=== PATIENT | male | born 1945 | race Caucasian/White ===

== ENCOUNTER 2017-04-16 06:42 | Inpatient (IN) | payer OTHER, MEDICARE ==
[~2017-04-16 06:42] MED LIST: Acetaminophen 1,000 MG in Premix Bag 1 BAG IV SCH; Famotidine 20 MG/2 ML SDV IVPUSH SCH; Ketorolac 15 MG/ML SDV IVPUSH SCH; Scopolamine 1.5 MG Transdermal Patch TRDERM SCH
[2017-04-16] MEDS ORDERED: Propofol 200 MG/20 ML SDV ONE (07:04)
[2017-04-16] MEDS ORDERED: Ondansetron 4 MG/2 ML SDV ONE (07:04)
[2017-04-16] MEDS ORDERED: Midazolam 1 MG/ML 2 ML SDV ONE (07:04)
[2017-04-16] MEDS ORDERED: fentaNYL 250 MCG/5 ML SDV ONE (07:04)
[2017-04-16] MEDS ORDERED: Lidocaine 2% 5 ML SDV ONE (07:04)
[2017-04-16] MEDS: Lactated Ringers 1,000 ML IV SCH ×2 (07:56→13:05)
[2017-04-16] MEDS: oxyCODONE ER 10 MG TAB.ER PO SCH ×2 (07:57→20:39)
[2017-04-16] MEDS ORDERED: Ropivacaine 49.25 ML, Ketorolac 30 MG, EPINEPHrine 0.5 MG, cloNIDine 80 MCG in Sodium C... INJECT SCH (08:00)
[2017-04-16] MEDS ORDERED: ceFAZolin 2 GM in Premix Bag 1 BAG IV SCH (08:00)
[2017-04-16] MEDS ORDERED: Tranexamic Acid 4,000 MG in Sodium Chloride 0.9% 100 ML IV SCH (08:00)
--- NOTE | 2017-04-16 08:03 | PCM.PREANE ---
Preanesthetic Assessment - Procedure Proposed Procedure: Right TKA - Anesthesia/Transfusion/Family Hx Anesthesia History: Prior Anesthesia Without Reaction Family History of Anesthesia Reaction: No Transfusion History: No Prior Transfusion(s) Intubation History: Unknown Additional History: hx of always being "hot/sweating". - Review of Systems General: Other (see above) Pulmonary: No Symptoms (former smoker) Cardiovascular: Other (Hypertension) Gastrointestinal: Other (GERD) Neurological: Gait Disturbance (due to knee pain), Other (chronic back pain) Other: Reports: Thyroid Problems (hypothyroid - treated), Neck Pain (chronic) - Physical Assessment NPO Status Date: 04/16/17 NPO Status Time: 05:00 (took pills) Height: 5 ft 4 in Weight: 248 lb ASA Class: 3 Mental Status: Alert & Oriented x3 Airway Class: Mallampati = 2 Dentition: Reports: Normal Dentition, Caries Thyro-Mental Finger Breadths: 3 Mouth Opening Finger Breadths: 3 ROM/Head Extension: Limited/Partial Lungs: Clear to Auscultation, Normal Respiratory Effort Cardiovascular: Regular Rate, Regular Rhythm, No Murmurs - Allergies Allergies/Adverse Reactions: Allergies Allergy/AdvReac Type Severity Reaction Status Date / Time No Known Allergies Allergy Verified 04/13/17 10:11 - Blood Blood Available: Yes Product(s) Available: PRBC (T and S) - Anesthesia Plan Pre-Op Medication Ordered: None - Acknowledgements Anesthesia Type Planned: General Anesthesia (OET vs LMA), Spinal Pt an Appropriate Candidate for the Planned Anesthesia: Yes Alternatives and Risks of Anesthesia Discussed w Pt/Guardian: Yes Pt/Guardian Understands and Agrees with Anesthesia Plan: Yes PreAnesthesia Questionnaire HEENT History: Reports: Cataract, Sinusitis Other HEENT History: wears glasses Cardiovascular History: Reports: CAD, High Cholesterol, Hypertension, SOB on Exertion Respiratory History: Reports: None Gastrointestinal History: Reports: GERD Genitourinary History: Reports: Renal Calculus Other Genitourinary History: takes Allopurinol for kidney stones Musculoskeletal History: Reports: Arthritis, Back Pain, Chronic, Neck Pain, Chronic Neurological History: Reports: None Psychiatric History: Reports: None Endocrine/Metabolic History: Reports: Hypothyroidism, Obesity/BMI 30+ Hematologic History: Reports: None Immunologic History: Reports: None Oncologic (Cancer) History: Reports: Other (See Below) Other Oncologic History: questionable lump removed from right arm/shoulder area many years ago Dermatologic History: Reports: Eczema Other Dermatologic History: on elbow - Past Surgical History Head Surgeries/Procedures: Reports: None HEENT Surgical History: Reports: Oral Surgery, Tonsillectomy Other Cardiovascular Surgeries/Procedures: cardiac angiogram Respiratory Surgical History: Reports: None GI Surgical History: Reports: None Male Surgical History: Reports: Lithotripsy (ESWL), Ureteral Stent Endocrine Surgical History: Reports: None Neurological Surgical History: Reports: None Musculoskeletal Surgical History: Reports: Knee Replacement, Other (See Below) Other Musculoskeletal Surgeries/Procedures:: right biceps tendon repair Oncologic Surgical History: Reports: None - History Comment History Comment: etoh "rare" - SUBSTANCE USE Smoking Status *Q: Former Smoker Tobacco Use Within Last Twelve Months: No Recreational Drug Use History: No - HOME MEDS Home Medications: Home Meds Allopurinol [Zyloprim] 300 mg PO DAILY 08/16/16 [History] Furosemide 20 mg PO QAM 08/16/16 [History] Levothyroxine Sodium [Synthroid] 112 mcg PO DAILY 08/16/16 [History] Plains-3/DHA/Epa/Fish Oil [Plains-3 Fish Oil 1,000 MG Sfgl] 1,000 mg PO DAILY 03/25 [History] Simvastatin [Zocor] 80 mg PO BEDTIME 08/16/16 [History] Vit D3 & K/Berberine HCl/Hops [Ostera] 2,000 unit PO DAILY 08/16/16 [History] Vitamin B Complex [B Complex] 100 mg PO DAILY 08/16/16 [History] Celecoxib [CeleBREX] 200 mg PO DAILY #45 cap 08/30/16 [Rx] Aspirin [Adult Low Dose Aspirin EC] 81 mg PO DAILY 04/13/17 [History] Losartan Potassium 50 mg PO DAILY 04/13/17 [History] - CURRENT (IN HOUSE) MEDS Current Meds: Current Medications Famotidine (Pepcid) 40 mg IVPUSH ONARRIVE [facility] Acetaminophen 1,000 mg/ Premix 100 mls @ 400 mls/hr IV ONARRIVE [facility] Ropivacaine 49.25 ml/Ketorolac Tromethamine 30 mg/Epinephrine HCl 0.5 mg/ Clonidine HCl 80 mcg/ Sodium Chloride 100 mls @ 50 mls/min INJECT ASDIRECTED [facility] Lactated Ringer's (Ringers, Lactated) 1,000 mls @ 100 mls/hr IV ASDIRECTED [facility] Last Admin: 04/16/17 07:56 Dose: 100 mls/hr Tranexamic Acid 4,000 mg/ (Sodium Chloride) 140 mls @ 600 mls/hr IV ASDIRECTED [facility] Cefazolin Sodium/Dextrose 2 gm (/ Premix) 50 mls @ 100 mls/hr IV ONCALL [facility] Ketorolac Tromethamine (Toradol) 15 mg IVPUSH ONARRIVE [facility] Oxycodone HCl (Oxycontin) 10 mg PO ONARRIVE [facility] Last Admin: 04/16/17 07:57 Dose: 10 mg Scopolamine (Transderm-Scop) 1.5 mg TRDERM ONARRIVE [facility] Last Admin: 04/16/17 07:56 Dose: 1.5 mg Discontinued Medications Fentanyl (Sublimaze) Confirm Administered Dose 250 mcg .ROUTE .STK-MED ONE Stop: 04/16/17 07:05 Lidocaine (Xylocaine-Mpf 2%) Confirm Administered Dose 5 ml .ROUTE .STK-MED ONE Stop: 04/16/17 07:05 Midazolam HCl (Versed 1 Mg/Ml) Confirm Administered Dose 2 mg .ROUTE .STK-MED ONE Stop: 04/16/17 07:05 Ondansetron HCl (Zofran) Confirm Administered Dose 4 mg .ROUTE .STK-MED ONE Stop: 04/16/17 07:05 Propofol (Diprivan 20 Ml) Confirm Administered Dose 200 mg .ROUTE .STK-MED ONE Stop: 04/16/17 07:05 Tranexamic Acid (Cyklokapron) Confirm Administered Dose 4,000 mg .ROUTE .STK- MED ONE Stop: 04/16/17 07:43
[2017-04-16] MEDS ORDERED: Succinylcholine/Normal Saline 200 MG/10 ML Syringe ONE (09:02)
[2017-04-16] MEDS ORDERED: Rocuronium 10 MG/ML 10 ML Syringe ONE (09:02)
[2017-04-16] MEDS ORDERED: ceFAZolin 1 GM Vial ONE ×2 (09:05→09:25)
[2017-04-16] MEDS ORDERED: Sodium Chloride 0.9% 20 ML ONE ×2 (09:05)
[2017-04-16] MEDS ORDERED: Phenylephrine/Normal Saline 100 MCG/ML 10 ML Syringe ONE (09:07)
[2017-04-16] MEDS ORDERED: Water For Injection, Sterile 20 ML ONE (09:09)
[2017-04-16] MEDS ORDERED: ePHEDrine 50 MG/ML SDV ONE (09:09)
[2017-04-16] MEDS ORDERED: fentaNYL 100 MCG/2 ML SDV IVPUSH PRN (09:30)
[2017-04-16] MEDS ORDERED: Bisacodyl 10 MG Supp RECTAL PRN (10:20)
[2017-04-16] MEDS ORDERED: Aluminum Hydroxide/Magnesium Hydroxide/Simethicone Susp 30 ML Cup PO PRN (10:20)
[2017-04-16] MEDS ORDERED: diphenhydrAMINE 25 MG Cap PO PRN (10:20)
[2017-04-16] MEDS ORDERED: Morphine 10 MG/ML Syringe IVPUSH PRN (10:20)
--- NOTE | 2017-04-16 10:44 | PCM.OPNOTE ---
- General Post-Op/Procedure Note Date of Surgery/Procedure: 04/16/17 Operative Procedure(s): R TKA Post-Op Diagnosis: DJD R knee Anesthesia Technique: General ET Tube, Spinal Primary Surgeon: Valerie Garcia Chair Caner: Noemi Bond Chair Caner: Meggan Fuentes EBShayna in mLs: 50 Condition: Good Free Text/Narrative:: tt=47 min #[id number] Intake & Output 04/15/17 04/16/17 04/16/17 22:59 06:59 14:59 Output Total 100 Balance -100
--- NOTE | 2017-04-16 11:25 | PCM.POSTAN ---
POST ANESTHESIA ASSESSMENT - MENTAL STATUS Mental Status: Alert, Oriented - RESPIRATORY Respiratory Status: Respiratory Rate WNL, Airway Patent, O2 Saturation Stable - CARDIOVASCULAR CV Status: Pulse Rate WNL, Blood Pressure Stable - GASTROINTESTINAL GI Status: No Symptoms - PAIN Pain Score: 0 (spinal still effective) - POST OP HYDRATION Hydration Status: Adequate & Stable
[2017-04-16] MEDS: oxyCODONE 5 MG Tab PO PRN (12:02)
[2017-04-16] MEDS: Acetaminophen 1,000 MG in Premix Bag 1 BAG IV SCH ×2 (13:36→20:35)
--- NOTE | 2017-04-16 14:19 | CR ---
EXAMINATION: Right knee HISTORY: Arthroplasty COMPARISON: 09/07/2016 TECHNIQUE: 2 views FINDINGS/IMPRESSION: Right total knee hardware is demonstrated in good position and alignment. Opera tive soft tissue changes are noted.
--- NOTE | 2017-04-16 14:29 | PCM.CONS ---
H&P History of Present Illness - General Date of Service: 04/16/17 Admit Problem/Dx: Admission Diagnosis/Problem Admission Diagnosis/Problem Arthroplasty of right knee Source of Information: Patient History Limitations: Reports: No Limitations - History of Present Illness Initial Comments - Free Text/Narative: 71 [id number] that underwent successful total right knee arthroplasty today by Dr. Garcia, orthopedist. We have been consulted by Dr. Garcia secondary to the patients multitude of medical problems including CAD, Hypercholesterolemia, hypertension, hypothyroidism, chronic neck/back pain treated with MsContin and Oxycodone, gout and GERD. Patient has been on his current medications for a long time with no changes in dosing. He currently denies any chest pain, palpitations, shortness of breath, wheezing, cough, abdominal pain, N/V/C/D, headache, dizziness, N/T/W in the upper and lower extremities bilaterally. He has already been up walking on the right knee and states that he did well with this. - Related Data Allergies/Adverse Reactions: Allergies Allergy/AdvReac Type Severity Reaction Status Date / Time No Known Allergies Allergy Verified 04/13/17 10:11 Home Medications: Home Meds Allopurinol [Zyloprim] 300 mg PO DAILY 08/16/16 [History] Furosemide 20 mg PO QAM 08/16/16 [History] Levothyroxine Sodium [Synthroid] 115 mcg PO DAILY 08/16/16 [History] Jones-3/DHA/Epa/Fish Oil [Jones-3 Fish Oil 1,000 MG Sfgl] 1,000 mg PO DAILY 03/25 [History] Simvastatin [Zocor] 80 mg PO BEDTIME 08/16/16 [History] Vit D3 & K/Berberine HCl/Hops [Ostera] 2,000 unit PO DAILY 08/16/16 [History] Vitamin B Complex [B Complex] 100 mg PO DAILY 08/16/16 [History] Losartan Potassium 50 mg PO DAILY 04/13/17 [History] Acetaminophen [Tylenol Extra Strength] 1,000 mg PO Q6H #100 tablet 04/16/17 [Rx] Aspirin 325 mg PO BID #90 tablet 04/16/17 [Rx] Celecoxib [CeleBREX] 200 mg PO DAILY #45 cap 04/16/17 [Rx] Cetirizine HCl 1 tab PO DAILY PRN 04/16/17 [History] Docusate Sodium [Colace] 100 mg PO BID #60 cap 04/16/17 [Rx] Furosemide 40 mg PO DAILY 04/16/17 [History] oxyCODONE 5 - 10 mg PO Q4H PRN #80 tablet 04/16/17 [Rx] oxyCODONE ER [OxyCONTIN] 10 mg PO Q12HR #30 tab.er 04/16/17 [Rx] Past Medical History HEENT History: Reports: Cataract, Sinusitis Other HEENT History: wears glasses Cardiovascular History: Reports: CAD, High Cholesterol, Hypertension, SOB on Exertion Respiratory History: Reports: None Gastrointestinal History: Reports: GERD Genitourinary History: Reports: Renal Calculus Other Genitourinary History: takes Allopurinol for kidney stones Musculoskeletal History: Reports: Arthritis, Back Pain, Chronic, Neck Pain, Chronic Neurological History: Reports: None Psychiatric History: Reports: None Endocrine/Metabolic History: Reports: Hypothyroidism, Obesity/BMI 30+ Hematologic History: Reports: None Immunologic History: Reports: None Oncologic (Cancer) History: Reports: Other (See Below) Other Oncologic History: questionable lump removed from right arm/shoulder area many years ago Dermatologic History: Reports: Eczema Other Dermatologic History: on elbow - Past Surgical History Head Surgeries/Procedures: Reports: None HEENT Surgical History: Reports: Oral Surgery, Tonsillectomy Other Cardiovascular Surgeries/Procedures: cardiac angiogram Respiratory Surgical History: Reports: None GI Surgical History: Reports: None Male Surgical History: Reports: Lithotripsy (ESWL), Ureteral Stent Endocrine Surgical History: Reports: None Neurological Surgical History: Reports: None Musculoskeletal Surgical History: Reports: Knee Replacement, Other (See Below) Other Musculoskeletal Surgeries/Procedures:: right biceps tendon repair Oncologic Surgical History: Reports: None - History Comment History Comment: etoh "rare" Social & Family History - Tobacco Use Smoking Status *Q: Former Smoker - Recreational Drug Use Recreational Drug Use: No Drug Use in Last 12 Months: No H&P Review of Systems - Review of Systems: Review Of Systems: See Below General: Reports: No Symptoms HEENT: Reports: No Symptoms Pulmonary: Reports: No Symptoms Cardiovascular: Reports: No Symptoms Gastrointestinal: Reports: No Symptoms Genitourinary: Reports: No Symptoms Musculoskeletal: Reports: Neck Pain (chronic), Back Pain (chronic), Other ( right knee pain s/p total right knee arthroplasty) Skin: Reports: No Symptoms Psychiatric: Reports: No Symptoms Neurological: Reports: No Symptoms Hematologic/Lymphatic: Reports: No Symptoms Immunologic: Reports: No Symptoms Exam - Exam Exam: See Below - Vital Signs Vital Signs: Last Vital Signs Temp 97.7 F 04/16/17 13:36 Pulse 83 04/16/17 13:36 Resp 19 04/16/17 13:36 BP 103/59 L 04/16/17 13:36 Pulse Ox 93 L 04/16/17 13:36 Weight: 248 lb - Exam Quality Assessment: DVT Prophylaxis (SCD's, aspirin BID) General: Alert, Oriented, Cooperative HEENT: Conjunctiva Clear, Hearing Intact, Mucosa Moist & [place], Posterior Pharynx Clear Neck: Supple, Trachea Midline, 2 Lungs: Clear to Auscultation, Normal Respiratory Effort Cardiovascular: Regular Rate, Regular Rhythm GI/Abdominal Exam: Normal Bowel Sounds, Soft, Non-Tender, No Organomegaly, No Distention, No Abnormal Bruit, No Mass Extremities: Normal Inspection, Normal Range of Motion, Non-Tender, No Pedal Edema, Normal Capillary Refill, Other (right knee is being iced ) Peripheral Pulses: 2+: Radial (L), Radial (R), Posterior Tibial (L), Posterior Tibial (R) Skin: Warm, Dry, Intact Neuro Extensive - Mental Status: Alert, Oriented x3, Normal Mood/Affect, Normal Cognition Psychiatric: Alert, Normal Affect, Normal Mood - Patient Data Lab Results Last 24 hrs: Laboratory Results - last 24 hr 04/16/17 Range/Units 07:03 Blood Type A NEGATIVE Antibody Screen NEGATIVE Consult PN Assessment/Plan POD#: 0 Procedures: Procedures CHEST X-RAY 2VW FRONTAL&LATL (03/28/17) COMPLETE CBC W/AUTO DIFF WBC (03/28/17) COMPREHEN METABOLIC PANEL (03/28/17) ELECTROCARDIOGRAM TRACING (08/02/16) HEPATITIS C AB TEST (08/02/16) INJ PARAVERT F JNT L/S 1 LEV (05/18/16) MRI JNT OF LWR EXTRE W/O DYE (03/08/17) MRI LUMBAR SPINE W/O DYE (03/31/16) NEUROMUSCULAR REEDUCATION (10/10/16) NJX INTERLAMINAR LMBR/SAC (03/21/17) PROTHROMBIN TIME (03/28/17) PT EVALUATION (09/07/16) ROUTINE VENIPUNCTURE (03/28/17) THERAPEUTIC EXERCISES (10/17/16) THROMBOPLASTIN TIME PARTIAL (03/28/17) URINALYSIS AUTO W/SCOPE (03/28/17) URINE CULTURE/COLONY COUNT (03/28/17) US EXAM ABDO BACK WALL CABEZAS (07/26/15) VASOPNEUMATIC DEVICE THERAPY (10/10/16) X-RAY EXAM KNEE 4 OR MORE (05/02/16) X-RAY EXAM OF KNEE 1 OR 2 (07/11/16) X-RAY EXAM OF KNEE 3 (09/07/16) X-RAY EXAM OF SHOULDER (09/24/14) (1) Coronary artery disease SNOMED Code(s): 93751472 Code(s): I25.10 - ATHSCL HEART DISEASE OF [place] CORONARY ARTERY W/O ANG PCTRS Current Visit: Yes (2) Hypercholesteremia SNOMED Code(s): 73157853 Code(s): E78.00 - PURE HYPERCHOLESTEROLEMIA, UNSPECIFIED Current Visit: Yes (3) Hypertension SNOMED Code(s): 48545921 Code(s): I10 - ESSENTIAL (PRIMARY) HYPERTENSION Current Visit: Yes (4) GERD (gastroesophageal reflux disease) SNOMED Code(s): 591461932 Code(s): K21.9 - GASTRO-ESOPHAGEAL REFLUX DISEASE WITHOUT ESOPHAGITIS Current Visit: Yes (5) Hypothyroidism SNOMED Code(s): 45461702 Code(s): E03.9 - HYPOTHYROIDISM, UNSPECIFIED Current Visit: Yes (6) Chronic neck and back pain SNOMED Code(s): 41678679, 2650259779717 Code(s): M54.2 - CERVICALGIA; M54.9 - DORSALGIA, UNSPECIFIED Current Visit : Yes (7) S/P knee replacement SNOMED Code(s): 040128909 Code(s): Z96.659 - PRESENCE OF UNSPECIFIED ARTIFICIAL KNEE JOINT Current Visit: Yes Problem List Initiated/Reviewed/Updated: Yes Plan: 71 year old male s/p total right knee arthroplasty. We have been consulted for his multiple medical issues. 1. HTN: -restarted home Lasix and Losartan -BMP and CBC are pending 2. Hypercholesterolemia: -Restart Zocor 3. Coronary Artery Disease: -Continue home Aspirin -patient takes Celebrex at home but we will hold this and restart at discharge. 4. Hypothyroidism: -restart Synthyroid 5. Chronic neck/back pain: -home medications of Oxycontin and Oxycodone. We will follow labs and vital signs throughout admission. DVT Prophylaxis: Aspirin 325mg PO BID.
[2017-04-16] MEDS ORDERED: Cetirizine 10 MG Tab PO PRN (14:43)
[2017-04-16 15:33] LABS: CHLORIDE,CL 107 mmol/L (98-110); SODIUM,NA 140 mmol/L (136-146)
[2017-04-16] MEDS: Ketorolac 15 MG/ML SDV IVPUSH SCH ×2 (16:34→21:46)
[2017-04-16] MEDS: ceFAZolin 2 GM in Premix Bag 1 BAG IV SCH (17:39)
--- NOTE | 2017-04-16 17:59 | OR ---
SURGEON: Valerie Garcia MD DATE OF PROCEDURE: 04/16/2017 PREOPERATIVE DIAGNOSIS: Degenerative joint disease, right knee, tricompartmental. POSTOPERATIVE DIAGNOSIS: Degenerative joint disease, right knee, tricompartmental. PROCEDURE: Right total knee arthroplasty using patient specific instrumentation. MEDICAL MALPRACTICE PARALEGAL: 1. Noemi Bond PA-C. 2. Meggan Fuentes PA-C. ANESTHESIA: Spinal and general. ESTIMATED BLOOD LOSS: 50 mL. TOURNIQUET TIME: 47 minutes. COMPLICATIONS: None. DVT PROPHYLAXIS: PAS boot and GABRIELLA hose to the nonoperative leg. IMPLANTS USED: Taran NextGen femoral component size F (LPS), tibial component size 6, 12 mm all-polyethylene articular surface, and 38 mm all-polyethylene patella. FINDINGS: Showed tricompartmental degenerative joint disease with chondromalacia in all three compartments. Osteophyte formation was also noted. No significant synovitis was found. BRIEF HISTORY: Al is a 71-year-old male, who has had complaint of progressive right knee pain. He has previously undergone a left total knee arthroplasty and has done well. Due to his lack of response to conservative treatment, I did recommend surgical intervention. The risks and goals of procedure were discussed with the patient and were documented preoperatively. He agreed to proceed. PROCEDURE IN DETAILS: The patient was properly identified and brought to the operating room. The patient was transferred from the operating room cart and placed on the operating room table. Spinal anesthesia was administered by the anesthesia team. After adequate sedation was achieved, a well-padded tourniquet was applied to the lower extremity. A Govea catheter was then placed. The lower extremity was then prepped in standard fashion using ChloraPrep solution. It was then sterilely draped. A time-out was performed to ensure correct site and procedure. Preoperative antibiotics were given along with one gram of tranexamic acid IV. The surgical site had been marked preoperatively. An Esmarch was used to exsanguinate the lower extremity and the tourniquet was inflated. An incision was made centered over the anterior aspect of the knee. The subcutaneous tissues were dissected down to the level of the fascia. A medial parapatellar approach was made. A partial medial release was also performed. The knee was then brought into extension and a portion of the infrapatellar fat pad was excised. The knee was then brought into flexion. The femoral patient specific cutting block was placed. This fit anatomically. The pins were then placed. The 0 degree distal femoral cutting guide was placed over the distal femur pins. The femur was then resected using an oscillating saw. The pins were then removed and were placed into the previously placed distal drill holes in the femoral condyles. Both Michelle's and the epicondylar axis were marked with electric cautery. The cutting block was then placed. This was pinned into position in a slightly lateral and externally rotated position. This was then secured. The resection guide was used to check to make sure that the anterior femoral cortex would not be notched. The anterior condylar cut was then made. No notching of the femur was noted. This was followed by the posterior condylar, posterior chamfer, and anterior chamfer cuts. The narrow reciprocating saw was then used to cut the base of the trochlear recess and score the edges. The finishing guide was then removed and the trochlear recess cuts and remaining bone cuts were finished. The notch cutting block was then placed into position and the notch cut was made without difficulty using the reciprocating saw. This was then removed. The notch block that had been cut along with a portion of the cruciate ligaments were also resected. We then turned our attention to the tibia. The posterior cruciate ligament retractor was used to bring the tibial surface anteriorly. The patient specific tibial block was then placed. This fit anatomically. It was pinned into position. The block was then removed. The 0 degree proximal tibia cutting guide was then placed over the guide pin. This was secured with a Shelly clamp. The resection depth was checked using the resection guide. A proximal tibia cut was then made using an oscillating saw. Care was taken to protect the patellar tendon. The proximal tibia bone was then removed. The remainder of the medial and lateral meniscus were also excised. Care was taken to protect the popliteus tendon. The proximal tibia was then sized. The remainder of the osteophytes along the proximal tibia were also resected. The distal femur was elevated to expose the posterior knee. The posterior capsule was stripped off the distal femur using a curved osteotome. The posterior osteophytes were also excised. The posterior capsule, along with the medial and lateral gutters, were then injected with the standard, preoperatively prepared, mixture consisting of clonidine, epinephrine, ropivacaine, Toradol, and saline, unless any allergies were noted preoperatively. The femoral trial was then placed. This was followed by the tibial component with a size 10 trial polyethylene. The knee was brought into full extension. Stability to varus and valgus stress was checked in extension and in flexion. There appeared to be good range of motion and stability. The knee was then brought into full extension. The patella was everted. The patella was resected to a thickness of 15 millimeters. It was then sized. Once the appropriate size was determined, the patella was prepared by placing the patella button in a slightly superior and medial position. The patella button trial was then placed and the knee was again taken through a range of motion. There was excellent patellar tracking using the no-touch technique. Alignment was checked with a drop tram. The trial components were then removed. The knee was brought into full flexion and the tibia was prepared in a standard fashion placing the tibial plate in slight external rotation with the center of the prosthesis lined up with the medial aspect of the tibial tubercle. The wound was then copiously irrigated with Pulsavac solution to remove any bony debris. The bone ends were then suctioned dry. Cement was prepared in the usual fashion on the back table. The cement was then placed onto the proximal tibia and the tibial component was placed without difficulty. This was malleted into position. Excess cement was cleared. The femoral component was cemented in a similar manner. A trial polyethylene was then placed and the knee was brought into full extension. An axial load was applied. The patella button was then cemented into place and a patella clamp was placed to hold pressure. The cement was allowed to cure. The wound was again copiously irrigated with saline solution using a Pulsavac screw machine operator. Following this 1 g of tranexamic acid was applied to the wound topically. After the cement had adequately hardened, the patella clamp was released. The knee was again taken through a range of motion. It was determined at this time the correct thickness of polyethylene. The trial polyethylene insert was then removed. The knee was brought into flexion and the tibial tray was suctioned dry. Any excess cement was cleared from the tibial and femoral components. The knee was then brought into approximately 45 degrees of flexion. The tourniquet was deflated. No excess bleeding was noted from the posterior aspect of the knee. An additional gram of tranexamic acid was given IV. The previously determined sized polyethylene insert was then placed and locked into position without difficulty. The knee was again taken through a range of motion with no change in stability, either in flexion or extension. The fascia layer was closed with No. 1 Vicryl. The subcutaneous tissue was closed with 2-0 Vicryl and the skin was closed with a onelia. Xeroform gauze was placed over the wound and a bulky dressing was applied. The patient was then awakened from the anesthetic and transferred back to the operating cart. The patient was brought to recovery room in stable condition. All needle and sponge counts were correct. MICKEY / SUNNY /[id number]
[2017-04-16] MEDS: Ondansetron 4 MG/2 ML SDV IV PRN (19:02)
[2017-04-16] MEDS: Simvastatin 40 MG Tab PO SCH (20:38)
[2017-04-16] MEDS: Docusate Sodium 100 MG Cap PO SCH (20:38)
[2017-04-17] MEDS: Lactated Ringers 1,000 ML IV SCH (00:40)
[2017-04-17] MEDS: Acetaminophen 500 MG Tab PO SCH ×4 (02:13→20:32)
[2017-04-17] MEDS: ceFAZolin 2 GM in Premix Bag 1 BAG IV SCH (02:14)
[2017-04-17] MEDS: Ketorolac 15 MG/ML SDV IVPUSH SCH (04:10)
[2017-04-17 05:52] LABS: CHLORIDE,CL 104 mmol/L (98-110); SODIUM,NA 137 mmol/L (136-146)
[2017-04-17] MEDS: oxyCODONE 5 MG Tab PO PRN ×3 (06:48→18:40)
[2017-04-17] MEDS ORDERED: Sodium Chloride 0.9% 2.5 ML Syringe FLUSH PRN (08:04)
[2017-04-17] MEDS ORDERED: Sodium Chloride 0.9% 10 ML Syringe FLUSH PRN (08:04)
--- NOTE | 2017-04-17 08:07 | PCM.SURGPN ---
<Noemi Bond R - Last Filed: 04/17/17 08:04> - General Info Date of Service: 04/17/17 Date of Surgery/Procedure: 04/16/17 POD#: 1 Functional Status: Reports: Pain Controlled, Tolerating Diet, Ambulating - Review of Systems General: Reports: No Symptoms Pulmonary: Reports: No Symptoms Cardiovascular: Reports: No Symptoms Musculoskeletal: Reports: Leg Pain Systems Review Comment:: pt up to chair for breakfast tolerating PO intake pain controlled with PO pain medications no specific concerns today - Patient Data Vitals - Most Recent: Last Vital Signs Temp 98.1 F 04/17/17 07:41 Pulse 70 04/17/17 07:41 Resp 22 H 04/17/17 07:41 BP 124/64 04/17/17 07:41 Pulse Ox 91 L 04/17/17 07:41 Weight - Most Recent: 112.491 kg I&O - Last 24 Hours: Intake & Output 04/16/17 04/17/17 04/17/17 22:59 06:59 14:59 Intake Total 650 1800 Output Total 225 875 Balance 425 925 Lab Results Last 24 Hrs: Laboratory Results - last 24 hr 04/16/17 04/16/17 04/16/17 Range/Units 07:03 15:01 15:01 WBC 8.43 (4.0-11.0) K/uL RBC 5.44 (4.50-5.90) M/uL Hgb 15.0 (13.0-17.0) g/dL Hct 46.6 (38.0-50.0) % MCV 85.7 (80.0-98.0) fL MCH 27.6 (27.0-32.0) pg MCHC 32.2 (31.0-37.0) g/dL RDW Std Deviation 47.6 (28.0-62.0) fl RDW Coeff of Donato 15 (11.0-15.0) % Plt Count 138 L (150-400) K/uL MPV 10.60 (7.40-12.00) fL Neut % (Auto) 80.5 H (48.0-80.0) % Lymph % (Auto) 14.0 L (16.0-40.0) % Shelby % (Auto) 4.7 (0.0-15.0) % Eos % (Auto) 0.7 (0.0-7.0) % Baso % (Auto) 0.1 (0.0-1.5) % Neut # (Auto) 6.8 H (1.4-5.7) K/uL Lymph # (Auto) 1.2 (0.6-2.4) K/uL [place] # (Auto) 0.4 (0.0-0.8) K/uL Eos # (Auto) 0.1 (0.0-0.7) K/uL Baso # (Auto) 0.0 (0.0-0.1) K/uL Nucleated RBC % 0.0 /100WBC Nucleated RBCs # 0 K/uL Sodium 140 (136-146) mmol/L Potassium 4.1 (3.5-5.1) mmol/L Chloride 107 (98-110) mmol/L Carbon Dioxide 25 (21-31) mmol/L BUN 14 (6.0-23.0) mg/dL Creatinine 1.0 (0.6-1.5) mg/dL Est Cr Clr Drug Dosing 55.91 mL/min Estimated GFR (MDRD) > 60.0 ml/min Glucose 112 H (60-110) mg/dL Calcium 8.9 (8.8-10.8) mg/dL Blood Type A NEGATIVE Antibody Screen NEGATIVE 04/17/17 04/17/17 Range/Units 04:50 04:50 WBC (4.0-11.0) K/uL RBC (4.50-5.90) M/uL Hgb 13.9 (13.0-17.0) g/dL Hct 42.0 (38.0-50.0) % MCV (80.0-98.0) fL MCH (27.0-32.0) pg MCHC (31.0-37.0) g/dL RDW Std Deviation (28.0-62.0) fl RDW Coeff of Donato (11.0-15.0) % Plt Count (150-400) K/uL MPV (7.40-12.00) fL Neut % (Auto) (48.0-80.0) % Lymph % (Auto) (16.0-40.0) % Shelby % (Auto) (0.0-15.0) % Eos % (Auto) (0.0-7.0) % Baso % (Auto) (0.0-1.5) % Neut # (Auto) (1.4-5.7) K/uL Lymph # (Auto) (0.6-2.4) K/uL [place] # (Auto) (0.0-0.8) K/uL Eos # (Auto) (0.0-0.7) K/uL Baso # (Auto) (0.0-0.1) K/uL Nucleated RBC % /100WBC Nucleated RBCs # K/uL Sodium 137 (136-146) mmol/L Potassium 4.0 (3.5-5.1) mmol/L Chloride 104 (98-110) mmol/L Carbon Dioxide 26 (21-31) mmol/L BUN 12 (6.0-23.0) mg/dL Creatinine 0.9 (0.6-1.5) mg/dL Est Cr Clr Drug Dosing 62.12 mL/min Estimated GFR (MDRD) > 60.0 ml/min Glucose 82 (60-110) mg/dL Calcium 8.5 L (8.8-10.8) mg/dL Blood Type Antibody Screen Med Orders - Current: Current Medications Acetaminophen (Tylenol Extra Strength) 1,000 mg PO Q6H [facility] Last Admin: 04/17/17 02:13 Dose: 1,000 mg Al Hydroxide/Mg Hydroxide (Mag-Al Plus) 30 ml PO Q4H PRN PRN Reason: indigestion Allopurinol (Zyloprim) 300 mg PO DAILY [facility] Aspirin (Aspirin) 325 mg PO BID [facility] Bisacodyl (Dulcolax) 10 mg RECTAL DAILY PRN PRN Reason: Constipation Cetirizine HCl (Zyrtec) 10 mg PO DAILY PRN PRN Reason: Allergies Diphenhydramine HCl (Benadryl) 25 - 50 mg PO Q6H PRN PRN Reason: Itching Docusate Sodium (Colace) 100 mg PO BID [facility] Last Admin: 04/16/17 20:38 Dose: 100 mg Famotidine (Pepcid) 40 mg IVPUSH ONARRIVE [facility] Last Admin: 04/16/17 07:59 Dose: 40 mg Famotidine (Pepcid) 40 mg PO DAILY [facility] Fentanyl (Sublimaze) 50 mcg IVPUSH Q5M PRN PRN Reason: Pain (severe 7-10) Stop: 04/17/17 09:30 Fish Oil (Fish Oil) 1 gm PO DAILY [facility] Furosemide (Lasix) 20 mg PO QAM [facility] Furosemide (Lasix) 40 mg PO DAILY [facility] Acetaminophen 1,000 mg/ Premix 100 mls @ 400 mls/hr IV ONARRIVE [facility] Last Admin: 04/16/17 08:01 Dose: 400 mls/hr Ropivacaine 49.25 ml/Ketorolac Tromethamine 30 mg/Epinephrine HCl 0.5 mg/ Clonidine HCl 80 mcg/ Sodium Chloride 100 mls @ 50 mls/min INJECT ASDIRECTED [facility] Lactated Ringer's (Ringers, Lactated) 1,000 mls @ 100 mls/hr IV ASDIRECTED [facility] Last Admin: 04/17/17 00:40 Dose: 100 mls/hr Tranexamic Acid 4,000 mg/ (Sodium Chloride) 140 mls @ 600 mls/hr IV ASDIRECTED [facility] Cefazolin Sodium/Dextrose 2 gm (/ Premix) 50 mls @ 100 mls/hr IV ONCALL [facility] Ketorolac Tromethamine (Toradol) 15 mg IVPUSH ONARRIVE [facility] Last Admin: 04/16/17 08:00 Dose: 15 mg Ketorolac Tromethamine (Toradol) 15 mg IVPUSH Q6H [facility] Stop: 04/17/17 09:00 Last Admin: 04/17/17 04:10 Dose: 15 mg Levothyroxine Sodium (Levothyroxine) 112 mcg PO DAILY [facility] Losartan Potassium (Cozaar) 50 mg PO DAILY [facility] Morphine Sulfate (Morphine) 1 - 3 mg IVPUSH Q3H PRN PRN Reason: Pain Ondansetron HCl (Zofran) 4 mg IV Q6HR PRN PRN Reason: NAUSEA/VOMITING Last Admin: 04/16/17 19:02 Dose: 4 mg Oxycodone HCl (Oxycontin) 10 mg PO ONARRIVE [facility] Last Admin: 04/16/17 07:57 Dose: 10 mg Oxycodone HCl (Oxycodone) 5 - 10 mg PO Q4H PRN PRN Reason: Pain Last Admin: 04/17/17 06:48 Dose: 5 mg Oxycodone HCl (Oxycontin) 10 mg PO Q12HR [facility] Last Admin: 04/16/17 20:39 Dose: 10 mg Scopolamine (Transderm-Scop) 1.5 mg TRDERM ONARRIVE [facility] Last Admin: 04/16/17 07:56 Dose: 1.5 mg Simvastatin (Zocor) 80 mg PO BEDTIME [facility] Last Admin: 04/16/17 20:38 Dose: 80 mg Discontinued Medications Cefazolin Sodium (Ancef) Confirm Administered Dose 2 gm .ROUTE .STK-MED ONE Stop: 04/16/17 09:06 Cefazolin Sodium (Ancef) Confirm Administered Dose 1 gm .ROUTE .STK-MED ONE Stop: 04/16/17 09:26 Celecoxib (Celebrex) 200 mg PO BID [facility] Ephedrine Sulfate (Ephedrine Sulfate) Confirm Administered Dose 50 mg .ROUTE .STK-MED ONE Stop: 04/16/17 09:10 Fentanyl (Sublimaze) Confirm Administered Dose 250 mcg .ROUTE .STK-MED ONE Stop: 04/16/17 07:05 Glycopyrrolate () Confirm Administered Dose 1 mg .ROUTE .STK-MED ONE Stop: 04/16/17 09:44 Sodium Chloride (Normal Saline) Confirm Administered Dose 20 mls @ as directed .ROUTE .STK-MED ONE Stop: 04/16/17 09:06 Sodium Chloride (Normal Saline) Confirm Administered Dose 20 mls @ as directed .ROUTE .STK-MED ONE Stop: 04/16/17 09:06 Sterile Water (Sterile Water For Injection) Confirm Administered Dose 20 mls @ as directed .ROUTE .STK-MED ONE Stop: 04/16/17 09:10 Acetaminophen 1,000 mg/ Premix 100 mls @ 400 mls/hr IV Q6H [facility] Stop: 04/16/17 20:14 Last Admin: 04/16/17 20:35 Dose: 400 mls/hr Cefazolin Sodium/Dextrose 2 gm (/ Premix) 50 mls @ 100 mls/hr IV Q8H [facility] Stop: 04/17/17 02:29 Last Admin: 04/17/17 02:14 Dose: 100 mls/hr Lidocaine (Xylocaine-Mpf 2%) Confirm Administered Dose 5 ml .ROUTE .STK-MED ONE Stop: 04/16/17 07:05 Midazolam HCl (Versed 1 Mg/Ml) Confirm Administered Dose 2 mg .ROUTE .STK-MED ONE Stop: 04/16/17 07:05 Non-Formulary Medication (Vit D3 & K/Berberine Hcl/Hops [Ostera]) 2,000 unit PO DAILY [facility] Non-Formulary Medication (Vitamin B Complex) 100 mg PO DAILY [facility] Ondansetron HCl (Zofran) Confirm Administered Dose 4 mg .ROUTE .STK-MED ONE Stop: 04/16/17 07:05 Phenylephrine HCl (Phenylephrine In Ns 100 Mcg/Ml) Confirm Administered Dose 1 mg .ROUTE .STK-MED ONE Stop: 04/16/17 09:08 Propofol (Diprivan 20 Ml) Confirm Administered Dose 200 mg .ROUTE .STK-MED ONE Stop: 04/16/17 07:05 Rocuronium [place] (Zemuron) Confirm Administered Dose 100 mg .ROUTE .STK-MED ONE Stop: 04/16/17 09:03 Succinylcholine Chloride (Succinylcholine In Ns Pf) Confirm Administered Dose 200 mg .ROUTE .STK-MED ONE Stop: 04/16/17 09:03 Tranexamic Acid (Cyklokapron) Confirm Administered Dose 4,000 mg .ROUTE .STK- MED ONE Stop: 04/16/17 07:43 - Exam Wound/Incisions: Dressing Dry and Intact. No: Drainage, Erythema General: Alert, Oriented Cardiovascular: Regular Rate, Regular Rhythm Extremities: No Pedal Edema, Other (RLE - at/ehl/gastroc 5/5, dp 2+, sensation intact distally) Physical Findings Comment:: vss, afeb uo 1260 mL hgb 13.9 - Problem List Review Problem List Initiated/Reviewed/Updated: Yes - My Orders Last 24 Hours: Active Orders 24 hr Category Date Time Status Activity as Tolerated [RC] .Routine Care 04/16/17 10:18 Active Dressing Change [Wound Care] [RC] ASDIRECTED Care 04/16/17 10:18 Active Insert Urinary Catheter [OM.PC] Routine Care 04/16/17 08:00 Ordered Intake and Output [RC] Q12H Care 04/16/17 10:18 Active Neurovascular Check [RC] Q2HR Care 04/16/17 10:18 Active Notify Provider Consults [RC] ASDIRECTED Care 04/16/17 10:33 Active Notify Provider Vital Signs [RC] ASDIRECTED Care 04/16/17 10:18 Active RT Incentive Spirometry [RC] ASDIRECTED Care 04/16/17 10:18 Active Urinary Catheter Assessment [RC] Q4H Care 04/16/17 08:00 Active Urinary Catheter Removal [RC] Per Unit Routine Care 04/17/17 08:04 Ordered Vital Signs [RC] Q4H Care 04/16/17 10:18 Active Consult to Physician [CONS] Routine Cons 04/16/17 10:31 Active PT Evaluation and Treatment [CONS] Routine Cons 04/16/17 10:17 Active HEMOGLOBIN/HEMATOCRIT,HH [HEME] DAILY Lab 04/18/17 06:00 Ordered HEMOGLOBIN/HEMATOCRIT,HH [HEME] DAILY Lab 04/19/17 06:00 Ordered Acetaminophen [Tylenol Extra Strength] Med 04/17/17 02:00 Active 1,000 mg PO Q6H Allopurinol [Zyloprim] Med 04/17/17 09:00 Active 300 mg PO DAILY Alum Hydrox/Mag Hydrox/Simeth [Mag-Al Plus] Med 04/16/17 10:20 Active 30 ml PO Q4H PRN Aspirin Med 04/17/17 09:00 Active 325 mg PO BID Bisacodyl [Dulcolax] Med 04/16/17 10:20 Active 10 mg RECTAL DAILY PRN Cetirizine [ZyrTEC] Med 04/16/17 14:43 Active 10 mg PO DAILY PRN Docusate Sodium [Colace] Med 04/16/17 21:00 Active 100 mg PO BID Famotidine [Pepcid] Med 04/17/17 09:00 Active 40 mg PO DAILY Fish Oil/[place]-3 Fatty Acids [Fish Oil] Med 04/17/17 09:00 Active 1 gm PO DAILY Furosemide [Lasix] Med 04/17/17 09:00 Active 20 mg PO QAM Furosemide [Lasix] Med 04/17/17 09:00 Active 40 mg PO DAILY Ketorolac [Toradol] Med 04/16/17 16:00 Active 15 mg IVPUSH Q6H Levothyroxine Med 04/17/17 09:00 Active 112 mcg PO DAILY Losartan [Cozaar] Med 04/17/17 09:00 Active 50 mg PO DAILY Morphine Med 04/16/17 10:20 Active 1 - 3 mg IVPUSH Q3H PRN Ondansetron [Zofran] Med 04/16/17 10:19 Active 4 mg IV Q6HR PRN Ropivacaine [Naropin 0.2%] 49.25 ml Med 04/16/17 08:00 Active Ketorolac [Toradol] 30 mg EPINEPHrine [Adrenalin 1:1000] 0.5 mg cloNIDine [Duraclon] 80 mcg Sodium Chloride 0.9% [Normal Saline] 48.45 ml INJECT ASDIRECTED Simvastatin [Zocor] Med 04/16/17 21:00 Active 80 mg PO BEDTIME Sodium Chloride 0.9% [Saline Flush] Med 04/17/17 08:04 Ordered 10 ml FLUSH ASDIRECTED PRN Sodium Chloride 0.9% [Saline Flush] Med 04/17/17 08:04 Ordered 2.5 ml FLUSH ASDIRECTED PRN Tranexamic Acid [Cyklokapron] 4,000 mg Med 04/16/17 08:00 Active Sodium Chloride 0.9% [Normal Saline] 100 ml IV ASDIRECTED ceFAZolin [Ancef] 2 gm Med 04/16/17 08:00 Active Premix Bag 1 bag IV ONCALL diphenhydrAMINE [Benadryl] Med 04/16/17 10:20 Active 25 - 50 mg PO Q6H PRN fentaNYL [Sublimaze] Med 04/16/17 09:30 Active 50 mcg IVPUSH Q5M PRN oxyCODONE Med 04/16/17 10:20 Active 5 - 10 mg PO Q4H PRN oxyCODONE ER [OxyCONTIN] Med 04/16/17 21:00 Active 10 mg PO Q12HR Convert IV to Saline Lock [OM.PC] Routine Oth 04/17/17 08:04 Ordered Ice Therapy [OM.PC] Routine Oth 04/16/17 10:18 Ordered Obtain Home Medication List [OM.PC] Routine Oth 04/16/17 10:17 Ordered Medication Orders Acetaminophen (Tylenol Extra Strength) 1,000 mg PO Q6H [facility] Last Admin: 04/17/17 02:13 Dose: 1,000 mg Al Hydroxide/Mg Hydroxide (Mag-Al Plus) 30 ml PO Q4H PRN PRN Reason: indigestion Allopurinol (Zyloprim) 300 mg PO DAILY [facility] Aspirin (Aspirin) 325 mg PO BID [facility] Bisacodyl (Dulcolax) 10 mg RECTAL DAILY PRN PRN Reason: Constipation Cetirizine HCl (Zyrtec) 10 mg PO DAILY PRN PRN Reason: Allergies Diphenhydramine HCl (Benadryl) 25 - 50 mg PO Q6H PRN PRN Reason: Itching Docusate Sodium (Colace) 100 mg PO BID [facility] Last Admin: 04/16/17 20:38 Dose: 100 mg Famotidine (Pepcid) 40 mg IVPUSH ONARRIVE [facility] Last Admin: 04/16/17 07:59 Dose: 40 mg Famotidine (Pepcid) 40 mg PO DAILY [facility] Fentanyl (Sublimaze) 50 mcg IVPUSH Q5M PRN PRN Reason: Pain (severe 7-10) Stop: 04/17/17 09:30 Fish Oil (Fish Oil) 1 gm PO DAILY [facility] Furosemide (Lasix) 20 mg PO QAM [facility] Furosemide (Lasix) 40 mg PO DAILY [facility] Acetaminophen 1,000 mg/ Premix 100 mls @ 400 mls/hr IV ONARRIVE [facility] Last Admin: 04/16/17 08:01 Dose: 400 mls/hr Ropivacaine 49.25 ml/Ketorolac Tromethamine 30 mg/Epinephrine HCl 0.5 mg/ Clonidine HCl 80 mcg/ Sodium Chloride 100 mls @ 50 mls/min INJECT ASDIRECTED [facility] Lactated Ringer's (Ringers, Lactated) 1,000 mls @ 100 mls/hr IV ASDIRECTED [facility] Last Admin: 04/17/17 00:40 Dose: 100 mls/hr Infusion: 04/16/17 23:05 Dose: 100 mls/hr Admin: 04/16/17 13:05 Dose: 100 mls/hr Infusion: 04/16/17 13:05 Dose: 100 mls/hr Admin: 04/16/17 07:56 Dose: 100 mls/hr Tranexamic Acid 4,000 mg/ (Sodium Chloride) 140 mls @ 600 mls/hr IV ASDIRECTED [facility] Cefazolin Sodium/Dextrose 2 gm (/ Premix) 50 mls @ 100 mls/hr IV ONCALL [facility] Ketorolac Tromethamine (Toradol) 15 mg IVPUSH ONARRIVE [facility] Last Admin: 04/16/17 08:00 Dose: 15 mg Ketorolac Tromethamine (Toradol) 15 mg IVPUSH Q6H [facility] Stop: 04/17/17 09:00 Last Admin: 04/17/17 04:10 Dose: 15 mg Admin: 04/16/17 21:46 Dose: 15 mg Admin: 04/16/17 16:34 Dose: 15 mg Levothyroxine Sodium (Levothyroxine) 112 mcg PO DAILY [facility] Losartan Potassium (Cozaar) 50 mg PO DAILY [facility] Morphine Sulfate (Morphine) 1 - 3 mg IVPUSH Q3H PRN PRN Reason: Pain Ondansetron HCl (Zofran) 4 mg IV Q6HR PRN PRN Reason: NAUSEA/VOMITING Last Admin: 04/16/17 19:02 Dose: 4 mg Oxycodone HCl (Oxycontin) 10 mg PO ONARRIVE [facility] Last Admin: 04/16/17 07:57 Dose: 10 mg Oxycodone HCl (Oxycodone) 5 - 10 mg PO Q4H PRN PRN Reason: Pain Last Admin: 04/17/17 06:48 Dose: 5 mg Admin: 04/16/17 12:02 Dose: 10 mg Oxycodone HCl (Oxycontin) 10 mg PO Q12HR [facility] Last Admin: 04/16/17 20:39 Dose: 10 mg Scopolamine (Transderm-Scop) 1.5 mg TRDERM ONARRIVE [facility] Last Admin: 04/16/17 07:56 Dose: 1.5 mg Simvastatin (Zocor) 80 mg PO BEDTIME [facility] Last Admin: 04/16/17 20:38 Dose: 80 mg - Assessment Assessment (Free Text/Narrative):: POD#1 R TKA - Plan Plan (Free Text/Narrative):: DC IV fluids DC león continue PT ASA 325mg PO BID for DVT prophylaxis appreciate hospitalist assistance likely d/ch to home tomorrow after PT will change dressing prior to discharge <Valerie Garcia R - Last Filed: 04/17/17 12:59> - Patient Data Vitals - Most Recent: Last Vital Signs Temp 98.1 F 04/17/17 07:41 Pulse 70 04/17/17 07:41 Resp 22 H 04/17/17 07:41 BP 110/59 L 04/17/17 08:28 Pulse Ox 91 L 04/17/17 07:41 I&O - Last 24 Hours: Intake & Output 04/16/17 04/17/17 04/17/17 22:59 06:59 14:59 Intake Total 650 1800 733 Output Total 819 005 Balance 425 125 733 Lab Results Last 24 Hrs: Laboratory Results - last 24 hr 04/16/17 04/16/17 04/17/17 Range/Units 15:01 15:01 04:50 WBC 8.43 (4.0-11.0) K/uL RBC 5.44 (4.50-5.90) M/uL Hgb 15.0 13.9 (13.0-17.0) g/dL Hct 46.6 42.0 (38.0-50.0) % MCV 85.7 (80.0-98.0) fL MCH 27.6 (27.0-32.0) pg MCHC 32.2 (31.0-37.0) g/dL RDW Std Deviation 47.6 (28.0-62.0) fl RDW Coeff of Donato 15 (11.0-15.0) % Plt Count 138 L (150-400) K/uL MPV 10.60 (7.40-12.00) fL Neut % (Auto) 80.5 H (48.0-80.0) % Lymph % (Auto) 14.0 L (16.0-40.0) % [place] % (Auto) 4.7 (0.0-15.0) % Eos % (Auto) 0.7 (0.0-7.0) % Baso % (Auto) 0.1 (0.0-1.5) % Neut # (Auto) 6.8 H (1.4-5.7) K/uL Lymph # (Auto) 1.2 (0.6-2.4) K/uL [place] # (Auto) 0.4 (0.0-0.8) K/uL Eos # (Auto) 0.1 (0.0-0.7) K/uL Baso # (Auto) 0.0 (0.0-0.1) K/uL Nucleated RBC % 0.0 /100WBC Nucleated RBCs # 0 K/uL Sodium 140 (136-146) mmol/L Potassium 4.1 (3.5-5.1) mmol/L Chloride 107 (98-110) mmol/L Carbon Dioxide 25 (21-31) mmol/L BUN 14 (6.0-23.0) mg/dL Creatinine 1.0 (0.6-1.5) mg/dL Est Cr Clr Drug Dosing 55.91 mL/min Estimated GFR (MDRD) > 60.0 ml/min Glucose 112 H (60-110) mg/dL Calcium 8.9 (8.8-10.8) mg/dL 04/17/17 Range/Units 04:50 WBC (4.0-11.0) K/uL RBC (4.50-5.90) M/uL Hgb (13.0-17.0) g/dL Hct (38.0-50.0) % MCV (80.0-98.0) fL MCH (27.0-32.0) pg MCHC (31.0-37.0) g/dL RDW Std Deviation (28.0-62.0) fl RDW Coeff of Donato (11.0-15.0) % Plt Count (150-400) K/uL MPV (7.40-12.00) fL Neut % (Auto) (48.0-80.0) % Lymph % (Auto) (16.0-40.0) % [place] % (Auto) (0.0-15.0) % Eos % (Auto) (0.0-7.0) % Baso % (Auto) (0.0-1.5) % Neut # (Auto) (1.4-5.7) K/uL Lymph # (Auto) (0.6-2.4) K/uL [place] # (Auto) (0.0-0.8) K/uL Eos # (Auto) (0.0-0.7) K/uL Baso # (Auto) (0.0-0.1) K/uL Nucleated RBC % /100WBC Nucleated RBCs # K/uL Sodium 137 (136-146) mmol/L Potassium 4.0 (3.5-5.1) mmol/L Chloride 104 (98-110) mmol/L Carbon Dioxide 26 (21-31) mmol/L BUN 12 (6.0-23.0) mg/dL Creatinine 0.9 (0.6-1.5) mg/dL Est Cr Clr Drug Dosing 62.12 mL/min Estimated GFR (MDRD) > 60.0 ml/min Glucose 82 (60-110) mg/dL Calcium 8.5 L (8.8-10.8) mg/dL Med Orders - Current: Current Medications Acetaminophen (Tylenol Extra Strength) 1,000 mg PO Q6H [facility] Last Admin: 04/17/17 08:25 Dose: 1,000 mg Al Hydroxide/Mg Hydroxide (Mag-Al Plus) 30 ml PO Q4H PRN PRN Reason: indigestion Allopurinol (Zyloprim) 300 mg PO DAILY [facility] Last Admin: 04/17/17 08:26 Dose: 300 mg Aspirin (Aspirin) 325 mg PO BID [facility] Last Admin: 04/17/17 08:28 Dose: 325 mg Bisacodyl (Dulcolax) 10 mg RECTAL DAILY PRN PRN Reason: Constipation Cetirizine HCl (Zyrtec) 10 mg PO DAILY PRN PRN Reason: Allergies Diphenhydramine HCl (Benadryl) 25 - 50 mg PO Q6H PRN PRN Reason: Itching Docusate Sodium (Colace) 100 mg PO BID [facility] Last Admin: 04/17/17 08:27 Dose: 100 mg Famotidine (Pepcid) 40 mg IVPUSH ONARRIVE [facility] Last Admin: 04/16/17 07:59 Dose: 40 mg Famotidine (Pepcid) 40 mg PO DAILY [facility] Last Admin: 04/17/17 08:28 Dose: 40 mg Fish Oil (Fish Oil) 1 gm PO DAILY [facility] Last Admin: 04/17/17 08:27 Dose: 1 gm Furosemide (Lasix) 20 mg PO QAM [facility] Last Admin: 04/17/17 08:28 Dose: 20 mg Furosemide (Lasix) 40 mg PO DAILY [facility] Last Admin: 04/17/17 08:31 Dose: 40 mg Acetaminophen 1,000 mg/ Premix 100 mls @ 400 mls/hr IV ONARRIVE [facility] Last Admin: 04/16/17 08:01 Dose: 400 mls/hr Ropivacaine 49.25 ml/Ketorolac Tromethamine 30 mg/Epinephrine HCl 0.5 mg/ Clonidine HCl 80 mcg/ Sodium Chloride 100 mls @ 50 mls/min INJECT ASDIRECTED [facility] Lactated Ringer's (Ringers, Lactated) 1,000 mls @ 100 mls/hr IV ASDIRECTED [facility] Last Infusion: 04/17/17 08:00 Dose: 100 mls/hr Tranexamic Acid 4,000 mg/ (Sodium Chloride) 140 mls @ 600 mls/hr IV ASDIRECTED [facility] Cefazolin Sodium/Dextrose 2 gm (/ Premix) 50 mls @ 100 mls/hr IV ONCALL [facility] Ketorolac Tromethamine (Toradol) 15 mg IVPUSH ONARRIVE [facility] Last Admin: 04/16/17 08:00 Dose: 15 mg Levothyroxine Sodium (Levothyroxine) 112 mcg PO DAILY [facility] Last Admin: 04/17/17 08:28 Dose: 112 mcg Losartan Potassium (Cozaar) 50 mg PO DAILY [facility] Last Admin: 04/17/17 08:28 Dose: 50 mg Morphine Sulfate (Morphine) 1 - 3 mg IVPUSH Q3H PRN PRN Reason: Pain Ondansetron HCl (Zofran) 4 mg IV Q6HR PRN PRN Reason: NAUSEA/VOMITING Last Admin: 04/16/17 19:02 Dose: 4 mg Oxycodone HCl (Oxycontin) 10 mg PO ONARRIVE [facility] Last Admin: 04/17/17 08:27 Dose: 10 mg Oxycodone HCl (Oxycodone) 5 - 10 mg PO Q4H PRN PRN Reason: Pain Last Admin: 04/17/17 06:48 Dose: 5 mg Oxycodone HCl (Oxycontin) 10 mg PO Q12HR [facility] Last Admin: 04/17/17 08:41 Dose: Not Given Scopolamine (Transderm-Scop) 1.5 mg TRDERM ONARRIVE [facility] Last Admin: 04/16/17 07:56 Dose: 1.5 mg Simvastatin (Zocor) 80 mg PO BEDTIME [facility] Last Admin: 04/16/17 20:38 Dose: 80 mg Sodium Chloride (Saline Flush) 10 ml FLUSH ASDIRECTED PRN PRN Reason: Keep Vein Open Sodium Chloride (Saline Flush) 2.5 ml FLUSH ASDIRECTED PRN PRN Reason: Keep Vein Open Discontinued Medications Cefazolin Sodium (Ancef) Confirm Administered Dose 2 gm .ROUTE .ST-MED ONE Stop: 04/16/17 09:06 Cefazolin Sodium (Ancef) Confirm Administered Dose 1 gm .ROUTE .STK-MED ONE Stop: 04/16/17 09:26 Celecoxib (Celebrex) 200 mg PO BID [facility] Ephedrine Sulfate (Ephedrine Sulfate) Confirm Administered Dose 50 mg .ROUTE .STK-MED ONE Stop: 04/16/17 09:10 Fentanyl (Sublimaze) Confirm Administered Dose 250 mcg .ROUTE .STK-MED ONE Stop: 04/16/17 07:05 Fentanyl (Sublimaze) 50 mcg IVPUSH Q5M PRN PRN Reason: Pain (severe 7-10) Stop: 04/17/17 09:30 Glycopyrrolate () Confirm Administered Dose 1 mg .ROUTE .STK-MED ONE Stop: 04/16/17 09:44 Sodium Chloride (Normal Saline) Confirm Administered Dose 20 mls @ as directed .ROUTE .STK-MED ONE Stop: 04/16/17 09:06 Sodium Chloride (Normal Saline) Confirm Administered Dose 20 mls @ as directed .ROUTE .STK-MED ONE Stop: 04/16/17 09:06 Sterile Water (Sterile Water For Injection) Confirm Administered Dose 20 mls @ as directed .ROUTE .STK-MED ONE Stop: 04/16/17 09:10 Acetaminophen 1,000 mg/ Premix 100 mls @ 400 mls/hr IV Q6H [facility] Stop: 04/16/17 20:14 Last Admin: 04/16/17 20:35 Dose: 400 mls/hr Cefazolin Sodium/Dextrose 2 gm (/ Premix) 50 mls @ 100 mls/hr IV Q8H [facility] Stop: 04/17/17 02:29 Last Admin: 04/17/17 02:14 Dose: 100 mls/hr Ketorolac Tromethamine (Toradol) 15 mg IVPUSH Q6H [facility] Stop: 04/17/17 09:00 Last Admin: 04/17/17 04:10 Dose: 15 mg Lidocaine (Xylocaine-Mpf 2%) Confirm Administered Dose 5 ml .ROUTE .STK-MED ONE Stop: 04/16/17 07:05 Midazolam HCl (Versed 1 Mg/Ml) Confirm Administered Dose 2 mg .ROUTE .STK-MED ONE Stop: 04/16/17 07:05 Non-Formulary Medication (Vit D3 & K/Berberine Hcl/Hops [Ostera]) 2,000 unit PO DAILY [facility] Non-Formulary Medication (Vitamin B Complex) 100 mg PO DAILY [facility] Ondansetron HCl (Zofran) Confirm Administered Dose 4 mg .ROUTE .STK-MED ONE Stop: 04/16/17 07:05 Phenylephrine HCl (Phenylephrine In Ns 100 Mcg/Ml) Confirm Administered Dose 1 mg .ROUTE .STK-MED ONE Stop: 04/16/17 09:08 Propofol (Diprivan 20 Ml) Confirm Administered Dose 200 mg .ROUTE .STK-MED ONE Stop: 04/16/17 07:05 Rocuronium [place] (Zemuron) Confirm Administered Dose 100 mg .ROUTE .STK-MED ONE Stop: 04/16/17 09:03 Succinylcholine Chloride (Succinylcholine In Ns Pf) Confirm Administered Dose 200 mg .ROUTE .STK-MED ONE Stop: 04/16/17 09:03 Tranexamic Acid (Cyklokapron) Confirm Administered Dose 4,000 mg .ROUTE .STK- MED ONE Stop: 04/16/17 07:43 - My Orders Last 24 Hours: Active Orders 24 hr Category Date Time Status Urinary Catheter Removal [RC] Per Unit Routine Care 04/17/17 08:04 Active BMP [BASIC METABOLIC PANEL,BMP] [CHEM] Routine Lab 04/18/17 05:00 Ordered HEMOGLOBIN/HEMATOCRIT,HH [HEME] DAILY Lab 04/18/17 06:00 Ordered HEMOGLOBIN/HEMATOCRIT,HH [HEME] DAILY Lab 04/19/17 06:00 Ordered Acetaminophen [Tylenol Extra Strength] Med 04/17/17 02:00 Active 1,000 mg PO Q6H Allopurinol [Zyloprim] Med 04/17/17 09:00 Active 300 mg PO DAILY Aspirin Med 04/17/17 09:00 Active 325 mg PO BID Cetirizine [ZyrTEC] Med 04/16/17 14:43 Active 10 mg PO DAILY PRN Docusate Sodium [Colace] Med 04/16/17 21:00 Active 100 mg PO BID Famotidine [Pepcid] Med 04/17/17 09:00 Active 40 mg PO DAILY Fish Oil/[place]-3 Fatty Acids [Fish Oil] Med 04/17/17 09:00 Active 1 gm PO DAILY Furosemide [Lasix] Med 04/17/17 09:00 Active 20 mg PO QAM Furosemide [Lasix] Med 04/17/17 09:00 Active 40 mg PO DAILY Levothyroxine Med 04/17/17 09:00 Active 112 mcg PO DAILY Losartan [Cozaar] Med 04/17/17 09:00 Active 50 mg PO DAILY Simvastatin [Zocor] Med 04/16/17 21:00 Active 80 mg PO BEDTIME Sodium Chloride 0.9% [Saline Flush] Med 04/17/17 08:04 Active 10 ml FLUSH ASDIRECTED PRN Sodium Chloride 0.9% [Saline Flush] Med 04/17/17 08:04 Active 2.5 ml FLUSH ASDIRECTED PRN oxyCODONE ER [OxyCONTIN] Med 04/16/17 21:00 Active 10 mg PO Q12HR Convert IV to Saline Lock [OM.PC] Routine Oth 04/17/17 08:04 Ordered Medication Orders Acetaminophen (Tylenol Extra Strength) 1,000 mg PO Q6H [facility] Last Admin: 04/17/17 08:25 Dose: 1,000 mg Admin: 04/17/17 02:13 Dose: 1,000 mg Al Hydroxide/Mg Hydroxide (Mag-Al Plus) 30 ml PO Q4H PRN PRN Reason: indigestion Allopurinol (Zyloprim) 300 mg PO DAILY [facility] Last Admin: 04/17/17 08:26 Dose: 300 mg Aspirin (Aspirin) 325 mg PO BID [facility] Last Admin: 04/17/17 08:28 Dose: 325 mg Bisacodyl (Dulcolax) 10 mg RECTAL DAILY PRN PRN Reason: Constipation Cetirizine HCl (Zyrtec) 10 mg PO DAILY PRN PRN Reason: Allergies Diphenhydramine HCl (Benadryl) 25 - 50 mg PO Q6H PRN PRN Reason: Itching Docusate Sodium (Colace) 100 mg PO BID [facility] Last Admin: 04/17/17 08:27 Dose: 100 mg Admin: 04/16/17 20:38 Dose: 100 mg Famotidine (Pepcid) 40 mg IVPUSH ONARRIVE [facility] Last Admin: 04/16/17 07:59 Dose: 40 mg Famotidine (Pepcid) 40 mg PO DAILY [facility] Last Admin: 04/17/17 08:28 Dose: 40 mg Fish Oil (Fish Oil) 1 gm PO DAILY [facility] Last Admin: 04/17/17 08:27 Dose: 1 gm Furosemide (Lasix) 20 mg PO QAM [facility] Last Admin: 04/17/17 08:28 Dose: 20 mg Furosemide (Lasix) 40 mg PO DAILY [facility] Last Admin: 04/17/17 08:31 Dose: 40 mg Acetaminophen 1,000 mg/ Premix 100 mls @ 400 mls/hr IV ONARRIVE [facility] Last Admin: 04/16/17 08:01 Dose: 400 mls/hr Ropivacaine 49.25 ml/Ketorolac Tromethamine 30 mg/Epinephrine HCl 0.5 mg/ Clonidine HCl 80 mcg/ Sodium Chloride 100 mls @ 50 mls/min INJECT ASDIRECTED [facility] Lactated Ringer's (Ringers, Lactated) 1,000 mls @ 100 mls/hr IV ASDIRECTED [facility] Last Infusion: 04/17/17 08:00 Dose: 100 mls/hr Admin: 04/17/17 00:40 Dose: 100 mls/hr Infusion: 04/16/17 23:05 Dose: 100 mls/hr Admin: 04/16/17 13:05 Dose: 100 mls/hr Infusion: 04/16/17 13:05 Dose: 100 mls/hr Admin: 04/16/17 07:56 Dose: 100 mls/hr Tranexamic Acid 4,000 mg/ (Sodium Chloride) 140 mls @ 600 mls/hr IV ASDIRECTED [facility] Cefazolin Sodium/Dextrose 2 gm (/ Premix) 50 mls @ 100 mls/hr IV ONCALL [facility] Ketorolac Tromethamine (Toradol) 15 mg IVPUSH ONARRIVE [facility] Last Admin: 04/16/17 08:00 Dose: 15 mg Levothyroxine Sodium (Levothyroxine) 112 mcg PO DAILY [facility] Last Admin: 04/17/17 08:28 Dose: 112 mcg Losartan Potassium (Cozaar) 50 mg PO DAILY [facility] Last Admin: 04/17/17 08:28 Dose: 50 mg Morphine Sulfate (Morphine) 1 - 3 mg IVPUSH Q3H PRN PRN Reason: Pain Ondansetron HCl (Zofran) 4 mg IV Q6HR PRN PRN Reason: NAUSEA/VOMITING Last Admin: 04/16/17 19:02 Dose: 4 mg Oxycodone HCl (Oxycontin) 10 mg PO ONARRIVE [facility] Last Admin: 04/17/17 08:27 Dose: 10 mg Admin: 04/16/17 07:57 Dose: 10 mg Oxycodone HCl (Oxycodone) 5 - 10 mg PO Q4H PRN PRN Reason: Pain Last Admin: 04/17/17 06:48 Dose: 5 mg Admin: 04/16/17 12:02 Dose: 10 mg Oxycodone HCl (Oxycontin) 10 mg PO Q12HR [facility] Last Admin: 04/17/17 08:41 Dose: Not Given Admin: 04/16/17 20:39 Dose: 10 mg Scopolamine (Transderm-Scop) 1.5 mg TRDERM ONARRIVE [facility] Last Admin: 04/16/17 07:56 Dose: 1.5 mg Simvastatin (Zocor) 80 mg PO BEDTIME [facility] Last Admin: 04/16/17 20:38 Dose: 80 mg Sodium Chloride (Saline Flush) 10 ml FLUSH ASDIRECTED PRN PRN Reason: Keep Vein Open Sodium Chloride (Saline Flush) 2.5 ml FLUSH ASDIRECTED PRN PRN Reason: Keep Vein Open - Plan Plan (Free Text/Narrative):: Pt seen at 1230. Sitting up in chair. Pain controlled with medication. Progressing with PT. Dressing intact. NVI. Hgb stable. Plan to keep overnight for observation, pain management, and further PT. Probably d/c home tomorrow afternoon. [email or web address]
--- NOTE | 2017-04-17 08:13 | PCM.CONSN ---
- General Info Date of Service: 04/17/17 Admission Dx/Problem (Free Text): Admission Diagnosis/Problem Admission Diagnosis/Problem Arthroplasty of right knee Subjective Update: Reports doing well this am, pain is tolerable and well controlled with medications. Denies chest pain or SOB. No N/V and has been up ambulating to door and back Functional Status: Reports: Pain Controlled, Tolerating Diet, Ambulating, Urinating - Review of Systems General: Reports: No Symptoms. Denies: Fever HEENT: Reports: No Symptoms. Denies: Headaches, Sore Throat, Rhinitis Pulmonary: Reports: No Symptoms. Denies: Shortness of Breath, Cough, Sputum Cardiovascular: Reports: Edema (dependent edema to R leg). Denies: Chest Pain Gastrointestinal: Reports: No Symptoms, Flatus. Denies: Abdominal Pain, Nausea , Vomiting Genitourinary: Reports: No Symptoms. Denies: Dysuria, Frequency, Burning Neurological: Reports: No Symptoms Psychiatric: Reports: No Symptoms - Patient Data Vitals - Most Recent: Last Vital Signs Temp 98.1 F 04/17/17 07:41 Pulse 70 04/17/17 07:41 Resp 22 H 04/17/17 07:41 BP 124/64 04/17/17 07:41 Pulse Ox 91 L 04/17/17 07:41 Weight - Most Recent: 112.491 kg I&O - Last 24 Hours: Intake & Output 04/16/17 04/17/17 04/17/17 22:59 06:59 14:59 Intake Total 650 1800 Output Total 225 875 Balance 425 925 Lab Results Last 24 Hours: Laboratory Results - last 24 hr 04/16/17 04/16/17 04/17/17 Range/Units 15:01 15:01 04:50 WBC 8.43 (4.0-11.0) K/uL RBC 5.44 (4.50-5.90) M/uL Hgb 15.0 13.9 (13.0-17.0) g/dL Hct 46.6 42.0 (38.0-50.0) % MCV 85.7 (80.0-98.0) fL MCH 27.6 (27.0-32.0) pg MCHC 32.2 (31.0-37.0) g/dL RDW Std Deviation 47.6 (28.0-62.0) fl RDW Coeff of Donato 15 (11.0-15.0) % Plt Count 138 L (150-400) K/uL MPV 10.60 (7.40-12.00) fL Neut % (Auto) 80.5 H (48.0-80.0) % Lymph % (Auto) 14.0 L (16.0-40.0) % [place] % (Auto) 4.7 (0.0-15.0) % Eos % (Auto) 0.7 (0.0-7.0) % Baso % (Auto) 0.1 (0.0-1.5) % Neut # (Auto) 6.8 H (1.4-5.7) K/uL Lymph # (Auto) 1.2 (0.6-2.4) K/uL [place] # (Auto) 0.4 (0.0-0.8) K/uL Eos # (Auto) 0.1 (0.0-0.7) K/uL Baso # (Auto) 0.0 (0.0-0.1) K/uL Nucleated RBC % 0.0 /100WBC Nucleated RBCs # 0 K/uL Sodium 140 (136-146) mmol/L Potassium 4.1 (3.5-5.1) mmol/L Chloride 107 (98-110) mmol/L Carbon Dioxide 25 (21-31) mmol/L BUN 14 (6.0-23.0) mg/dL Creatinine 1.0 (0.6-1.5) mg/dL Est Cr Clr Drug Dosing 55.91 mL/min Estimated GFR (MDRD) > 60.0 ml/min Glucose 112 H (60-110) mg/dL Calcium 8.9 (8.8-10.8) mg/dL 04/17/17 Range/Units 04:50 WBC (4.0-11.0) K/uL RBC (4.50-5.90) M/uL Hgb (13.0-17.0) g/dL Hct (38.0-50.0) % MCV (80.0-98.0) fL MCH (27.0-32.0) pg MCHC (31.0-37.0) g/dL RDW Std Deviation (28.0-62.0) fl RDW Coeff of Donato (11.0-15.0) % Plt Count (150-400) K/uL MPV (7.40-12.00) fL Neut % (Auto) (48.0-80.0) % Lymph % (Auto) (16.0-40.0) % [place] % (Auto) (0.0-15.0) % Eos % (Auto) (0.0-7.0) % Baso % (Auto) (0.0-1.5) % Neut # (Auto) (1.4-5.7) K/uL Lymph # (Auto) (0.6-2.4) K/uL [place] # (Auto) (0.0-0.8) K/uL Eos # (Auto) (0.0-0.7) K/uL Baso # (Auto) (0.0-0.1) K/uL Nucleated RBC % /100WBC Nucleated RBCs # K/uL Sodium 137 (136-146) mmol/L Potassium 4.0 (3.5-5.1) mmol/L Chloride 104 (98-110) mmol/L Carbon Dioxide 26 (21-31) mmol/L BUN 12 (6.0-23.0) mg/dL Creatinine 0.9 (0.6-1.5) mg/dL Est Cr Clr Drug Dosing 62.12 mL/min Estimated GFR (MDRD) > 60.0 ml/min Glucose 82 (60-110) mg/dL Calcium 8.5 L (8.8-10.8) mg/dL Med Orders - Current: Current Medications Acetaminophen (Tylenol Extra Strength) 1,000 mg PO Q6H [facility] Last Admin: 04/17/17 02:13 Dose: 1,000 mg Al Hydroxide/Mg Hydroxide (Mag-Al Plus) 30 ml PO Q4H PRN PRN Reason: indigestion Allopurinol (Zyloprim) 300 mg PO DAILY [facility] Aspirin (Aspirin) 325 mg PO BID [facility] Bisacodyl (Dulcolax) 10 mg RECTAL DAILY PRN PRN Reason: Constipation Cetirizine HCl (Zyrtec) 10 mg PO DAILY PRN PRN Reason: Allergies Diphenhydramine HCl (Benadryl) 25 - 50 mg PO Q6H PRN PRN Reason: Itching Docusate Sodium (Colace) 100 mg PO BID [facility] Last Admin: 04/16/17 20:38 Dose: 100 mg Famotidine (Pepcid) 40 mg IVPUSH ONARRIVE [facility] Last Admin: 04/16/17 07:59 Dose: 40 mg Famotidine (Pepcid) 40 mg PO DAILY [facility] Fentanyl (Sublimaze) 50 mcg IVPUSH Q5M PRN PRN Reason: Pain (severe 7-10) Stop: 04/17/17 09:30 Fish Oil (Fish Oil) 1 gm PO DAILY [facility] Furosemide (Lasix) 20 mg PO QAM [facility] Furosemide (Lasix) 40 mg PO DAILY [facility] Acetaminophen 1,000 mg/ Premix 100 mls @ 400 mls/hr IV ONARRIVE [facility] Last Admin: 04/16/17 08:01 Dose: 400 mls/hr Ropivacaine 49.25 ml/Ketorolac Tromethamine 30 mg/Epinephrine HCl 0.5 mg/ Clonidine HCl 80 mcg/ Sodium Chloride 100 mls @ 50 mls/min INJECT ASDIRECTED [facility] Lactated Ringer's (Ringers, Lactated) 1,000 mls @ 100 mls/hr IV ASDIRECTED [facility] Last Admin: 04/17/17 00:40 Dose: 100 mls/hr Tranexamic Acid 4,000 mg/ (Sodium Chloride) 140 mls @ 600 mls/hr IV ASDIRECTED [facility] Cefazolin Sodium/Dextrose 2 gm (/ Premix) 50 mls @ 100 mls/hr IV ONCALL [facility] Ketorolac Tromethamine (Toradol) 15 mg IVPUSH ONARRIVE [facility] Last Admin: 04/16/17 08:00 Dose: 15 mg Ketorolac Tromethamine (Toradol) 15 mg IVPUSH Q6H [facility] Stop: 04/17/17 09:00 Last Admin: 04/17/17 04:10 Dose: 15 mg Levothyroxine Sodium (Levothyroxine) 112 mcg PO DAILY [facility] Losartan Potassium (Cozaar) 50 mg PO DAILY [facility] Morphine Sulfate (Morphine) 1 - 3 mg IVPUSH Q3H PRN PRN Reason: Pain Ondansetron HCl (Zofran) 4 mg IV Q6HR PRN PRN Reason: NAUSEA/VOMITING Last Admin: 04/16/17 19:02 Dose: 4 mg Oxycodone HCl (Oxycontin) 10 mg PO ONARRIVE [facility] Last Admin: 04/16/17 07:57 Dose: 10 mg Oxycodone HCl (Oxycodone) 5 - 10 mg PO Q4H PRN PRN Reason: Pain Last Admin: 04/17/17 06:48 Dose: 5 mg Oxycodone HCl (Oxycontin) 10 mg PO Q12HR [facility] Last Admin: 04/16/17 20:39 Dose: 10 mg Scopolamine (Transderm-Scop) 1.5 mg TRDERM ONARRIVE [facility] Last Admin: 04/16/17 07:56 Dose: 1.5 mg Simvastatin (Zocor) 80 mg PO BEDTIME [facility] Last Admin: 04/16/17 20:38 Dose: 80 mg Sodium Chloride (Saline Flush) 10 ml FLUSH ASDIRECTED PRN PRN Reason: Keep Vein Open Sodium Chloride (Saline Flush) 2.5 ml FLUSH ASDIRECTED PRN PRN Reason: Keep Vein Open Discontinued Medications Cefazolin Sodium (Ancef) Confirm Administered Dose 2 gm .ROUTE .STK-MED ONE Stop: 04/16/17 09:06 Cefazolin Sodium (Ancef) Confirm Administered Dose 1 gm .ROUTE .STK-MED ONE Stop: 04/16/17 09:26 Celecoxib (Celebrex) 200 mg PO BID [facility] Ephedrine Sulfate (Ephedrine Sulfate) Confirm Administered Dose 50 mg .ROUTE .STK-MED ONE Stop: 04/16/17 09:10 Fentanyl (Sublimaze) Confirm Administered Dose 250 mcg .ROUTE .STK-MED ONE Stop: 04/16/17 07:05 Glycopyrrolate () Confirm Administered Dose 1 mg .ROUTE .STK-MED ONE Stop: 04/16/17 09:44 Sodium Chloride (Normal Saline) Confirm Administered Dose 20 mls @ as directed .ROUTE .STK-MED ONE Stop: 04/16/17 09:06 Sodium Chloride (Normal Saline) Confirm Administered Dose 20 mls @ as directed .ROUTE .STK-MED ONE Stop: 04/16/17 09:06 Sterile Water (Sterile Water For Injection) Confirm Administered Dose 20 mls @ as directed .ROUTE .STK-MED ONE Stop: 04/16/17 09:10 Acetaminophen 1,000 mg/ Premix 100 mls @ 400 mls/hr IV Q6H [facility] Stop: 04/16/17 20:14 Last Admin: 04/16/17 20:35 Dose: 400 mls/hr Cefazolin Sodium/Dextrose 2 gm (/ Premix) 50 mls @ 100 mls/hr IV Q8H [facility] Stop: 04/17/17 02:29 Last Admin: 04/17/17 02:14 Dose: 100 mls/hr Lidocaine (Xylocaine-Mpf 2%) Confirm Administered Dose 5 ml .ROUTE .STK-MED ONE Stop: 04/16/17 07:05 Midazolam HCl (Versed 1 Mg/Ml) Confirm Administered Dose 2 mg .ROUTE .STK-MED ONE Stop: 04/16/17 07:05 Non-Formulary Medication (Vit D3 & K/[place] Hcl/Hops [Ostera]) 2,000 unit PO DAILY [facility] Non-Formulary Medication (Vitamin B Complex) 100 mg PO DAILY [facility] Ondansetron HCl (Zofran) Confirm Administered Dose 4 mg .ROUTE .STK-MED ONE Stop: 04/16/17 07:05 Phenylephrine HCl (Phenylephrine In Ns 100 Mcg/Ml) Confirm Administered Dose 1 mg .ROUTE .STK-MED ONE Stop: 04/16/17 09:08 Propofol (Diprivan 20 Ml) Confirm Administered Dose 200 mg .ROUTE .STK-MED ONE Stop: 04/16/17 07:05 Rocuronium [place] (Zemuron) Confirm Administered Dose 100 mg .ROUTE .STK-MED ONE Stop: 04/16/17 09:03 Succinylcholine Chloride (Succinylcholine In Ns Pf) Confirm Administered Dose 200 mg .ROUTE .STK-MED ONE Stop: 04/16/17 09:03 Tranexamic Acid (Cyklokapron) Confirm Administered Dose 4,000 mg .ROUTE .STK- MED ONE Stop: 04/16/17 07:43 - Exam General: Alert, Oriented, Cooperative, No Acute Distress Neck: Supple, No JVD Lungs: Clear to Auscultation, Normal Respiratory Effort Cardiovascular: Regular Rate, Regular Rhythm Extremities: Normal Inspection, Normal Range of Motion, Non-Tender, No Pedal Edema, Normal Capillary Refill Skin: Warm, Dry Wound/Incisions: Dressing Dry and Intact (R knee incision) Neurological: No New Focal Deficit Psy/Mental Status: Alert, Normal Affect, Normal Mood Consult PN Assessment/Plan Procedures: Procedures CHEST X-RAY 2VW FRONTAL&LATL (03/28/17) COMPLETE CBC W/AUTO DIFF WBC (03/28/17) COMPREHEN METABOLIC PANEL (03/28/17) ELECTROCARDIOGRAM TRACING (08/02/16) HEPATITIS C AB TEST (08/02/16) INJ PARAVERT F JNT L/S 1 LEV (05/18/16) MRI JNT OF LWR EXTRE W/O DYE (03/08/17) MRI LUMBAR SPINE W/O DYE (03/31/16) NEUROMUSCULAR REEDUCATION (10/10/16) NJX INTERLAMINAR LMBR/SAC (03/21/17) PROTHROMBIN TIME (03/28/17) PT EVALUATION (09/07/16) ROUTINE VENIPUNCTURE (03/28/17) THERAPEUTIC EXERCISES (10/17/16) THROMBOPLASTIN TIME PARTIAL (03/28/17) URINALYSIS AUTO W/SCOPE (03/28/17) URINE CULTURE/COLONY COUNT (03/28/17) US EXAM ABDO BACK WALL CABEZAS (07/26/15) VASOPNEUMATIC DEVICE THERAPY (10/10/16) X-RAY EXAM KNEE 4 OR MORE (05/02/16) X-RAY EXAM OF KNEE 1 OR 2 (07/11/16) X-RAY EXAM OF KNEE 3 (09/07/16) X-RAY EXAM OF SHOULDER (09/24/14) (1) S/P knee replacement SNOMED Code(s): 995516703 Code(s): Z96.659 - PRESENCE OF UNSPECIFIED ARTIFICIAL KNEE JOINT Current Visit: Yes Qualifiers: Laterality: right Qualified Code(s): Z96.651 - Presence of right artificial knee joint (2) Chronic neck and back pain SNOMED Code(s): 49310692, 0790718245866 Code(s): M54.2 - CERVICALGIA; M54.9 - DORSALGIA, UNSPECIFIED Current Visit : Yes (3) Coronary artery disease SNOMED Code(s): 13728511 Code(s): I25.10 - ATHSCL HEART DISEASE OF [place] CORONARY ARTERY W/O ANG PCTRS Current Visit: Yes (4) GERD (gastroesophageal reflux disease) SNOMED Code(s): 867822641 Code(s): K21.9 - GASTRO-ESOPHAGEAL REFLUX DISEASE WITHOUT ESOPHAGITIS Current Visit: Yes (5) Hypercholesteremia SNOMED Code(s): 89806537 Code(s): E78.00 - PURE HYPERCHOLESTEROLEMIA, UNSPECIFIED Current Visit: Yes (6) Hypertension SNOMED Code(s): 93522869 Code(s): I10 - ESSENTIAL (PRIMARY) HYPERTENSION Current Visit: Yes (7) Hypothyroidism SNOMED Code(s): 59678859 Code(s): E03.9 - HYPOTHYROIDISM, UNSPECIFIED Current Visit: Yes Problem List Initiated/Reviewed/Updated: Yes Plan: 1. HTN: Stable, continue Lasix and Losartan 2. Hypercholesterolemia: Stable, continue Zocor 3. Coronary Artery Disease: Continue home Aspirin 4. Hypothyroidism: Continue Synthyroid 5. Chronic neck/back pain: Continue Oxycontin and Oxycodone. VTE Prophylaxis: Per Ortho, on Aspirin 325mg PO BID.
[2017-04-17] MEDS: Allopurinol 300 MG Tab PO SCH (08:26)
[2017-04-17] MEDS: oxyCODONE ER 10 MG TAB.ER PO SCH ×3 (08:27→20:31)
[2017-04-17] MEDS: Docusate Sodium 100 MG Cap PO SCH ×2 (08:27→20:31)
[2017-04-17] MEDS: Fish Oil/Omega-3 Fatty Acids 1 Gm Cap PO SCH (08:27)
[2017-04-17] MEDS: Aspirin 325 MG Tab PO SCH ×2 (08:28→20:32)
[2017-04-17] MEDS: Losartan 50 MG Tab PO SCH (08:28)
[2017-04-17] MEDS: Furosemide 20 MG Tab PO SCH (08:28)
[2017-04-17] MEDS: Levothyroxine 112 MCG Tab PO SCH (08:28)
[2017-04-17] MEDS: Famotidine 20 MG Tab PO SCH (08:28)
[2017-04-17] MEDS ORDERED: Celecoxib 100 MG Cap PO SCH (09:00)
[2017-04-17] MEDS ORDERED: Furosemide 40 MG Tab PO SCH (09:00)
[2017-04-17] MEDS ORDERED: [UNRECOGNIZED DRUG - MIXTURE] PO SCH (09:00)
[2017-04-17] MEDS ORDERED: VITAMIN B COMPLEX 100 MG PO SCH (09:00)
[2017-04-17] MEDS: Ondansetron 4 MG/2 ML SDV IV PRN (15:56)
[2017-04-17] MEDS: Simvastatin 40 MG Tab PO SCH (20:31)
--- NOTE | 2017-04-17 21:11 | PCM48HPAN ---
Post Anesthesia Note - EVALUATION WITHIN 48HRS OF ANESTHETIC Vital Signs in Normal Range: Yes Patient Participated in Evaluation: Yes Respiratory Function Stable: Yes Airway Patent: Yes Cardiovascular Function Stable: Yes Hydration Status Stable: Yes Pain Control Satisfactory: Yes Nausea and Vomiting Control Satisfactory: Yes Mental Status Recovered: Yes
[2017-04-18] MEDS: oxyCODONE 5 MG Tab PO PRN (00:24)
[2017-04-18] MEDS: Acetaminophen 500 MG Tab PO SCH ×2 (02:17→08:12)
[2017-04-18 05:33] LABS: CHLORIDE,CL 102 mmol/L (98-110); SODIUM,NA 137 mmol/L (136-146)
[2017-04-18 08:09] VITALS: BP 118/69
[2017-04-18] MEDS: Aspirin 325 MG Tab PO SCH (08:14)
[2017-04-18] MEDS: Losartan 50 MG Tab PO SCH (08:14)
[2017-04-18] MEDS: Fish Oil/Omega-3 Fatty Acids 1 Gm Cap PO SCH (08:14)
[2017-04-18] MEDS: oxyCODONE ER 10 MG TAB.ER PO SCH (08:15)
[2017-04-18] MEDS: Famotidine 20 MG Tab PO SCH (08:15)
[2017-04-18] MEDS: Levothyroxine 112 MCG Tab PO SCH (08:16)
[2017-04-18] MEDS: Allopurinol 300 MG Tab PO SCH (08:16)
[2017-04-18] MEDS: Docusate Sodium 100 MG Cap PO SCH (08:16)
[2017-04-18] MEDS: Furosemide 20 MG Tab PO SCH (08:17)
--- NOTE | 2017-04-18 08:20 | PCM.SURGPN ---
- General Info Date of Service: 04/18/17 Date of Surgery/Procedure: 04/16/17 POD#: 2 Functional Status: Reports: Pain Controlled, Tolerating Diet, Ambulating, Urinating - Review of Systems General: Reports: No Symptoms Pulmonary: Reports: No Symptoms Cardiovascular: Reports: No Symptoms Gastrointestinal: Reports: No Symptoms Musculoskeletal: Reports: Leg Pain Systems Review Comment:: pt dressed, up to chair for breakfast pain under better control, needed IV morphine last night states last night he thought there were bugs crawling on the floor, no other hallucinations/delirium ready for discharge to home today - Patient Data Vitals - Most Recent: Last Vital Signs Temp 97.8 F 04/18/17 08:00 Pulse 79 04/18/17 08:00 Resp 16 04/18/17 08:00 BP 118/69 04/18/17 08:00 Pulse Ox 94 L 04/18/17 08:00 Weight - Most Recent: 112.491 kg I&O - Last 24 Hours: Intake & Output 04/17/17 04/18/17 04/18/17 22:59 06:59 14:59 Intake Total 1250 650 Output Total 1750 1750 Balance -500 -1100 Lab Results Last 24 Hrs: Laboratory Results - last 24 hr 04/18/17 04/18/17 Range/Units 04:47 04:47 Hgb 13.5 (13.0-17.0) g/dL Hct 43.3 (38.0-50.0) % Sodium 137 (136-146) mmol/L Potassium 3.8 (3.5-5.1) mmol/L Chloride 102 (98-110) mmol/L Carbon Dioxide 25 (21-31) mmol/L BUN 12 (6.0-23.0) mg/dL Creatinine 0.9 (0.6-1.5) mg/dL Est Cr Clr Drug Dosing 62.12 mL/min Estimated GFR (MDRD) > 60.0 ml/min Glucose 82 (60-110) mg/dL Calcium 8.6 L (8.8-10.8) mg/dL Med Orders - Current: Current Medications Acetaminophen (Tylenol Extra Strength) 1,000 mg PO Q6H SRINI Last Admin: 04/18/17 02:17 Dose: 1,000 mg Al Hydroxide/Mg Hydroxide (Mag-Al Plus) 30 ml PO Q4H PRN PRN Reason: indigestion Allopurinol (Zyloprim) 300 mg PO DAILY [facility] Last Admin: 04/17/17 08:26 Dose: 300 mg Aspirin (Aspirin) 325 mg PO BID [facility] Last Admin: 04/17/17 20:32 Dose: 325 mg Bisacodyl (Dulcolax) 10 mg RECTAL DAILY PRN PRN Reason: Constipation Cetirizine HCl (Zyrtec) 10 mg PO DAILY PRN PRN Reason: Allergies Diphenhydramine HCl (Benadryl) 25 - 50 mg PO Q6H PRN PRN Reason: Itching Last Admin: 04/17/17 20:31 Dose: 25 mg Docusate Sodium (Colace) 100 mg PO BID [facility] Last Admin: 04/17/17 20:31 Dose: 100 mg Famotidine (Pepcid) 40 mg IVPUSH ONARRIVE [facility] Last Admin: 04/16/17 07:59 Dose: 40 mg Famotidine (Pepcid) 40 mg PO DAILY [facility] Last Admin: 04/17/17 08:28 Dose: 40 mg Fish Oil (Fish Oil) 1 gm PO DAILY [facility] Last Admin: 04/17/17 08:27 Dose: 1 gm Furosemide (Lasix) 20 mg PO QAM [facility] Last Admin: 04/17/17 08:28 Dose: 20 mg Acetaminophen 1,000 mg/ Premix 100 mls @ 400 mls/hr IV ONARRIVE [facility] Last Admin: 04/16/17 08:01 Dose: 400 mls/hr Ropivacaine 49.25 ml/Ketorolac Tromethamine 30 mg/Epinephrine HCl 0.5 mg/ Clonidine HCl 80 mcg/ Sodium Chloride 100 mls @ 50 mls/min INJECT ASDIRECTED [facility] Lactated Ringer's (Ringers, Lactated) 1,000 mls @ 100 mls/hr IV ASDIRECTED [facility] Last Infusion: 04/17/17 08:00 Dose: 100 mls/hr Tranexamic Acid 4,000 mg/ (Sodium Chloride) 140 mls @ 600 mls/hr IV ASDIRECTED [facility] Cefazolin Sodium/Dextrose 2 gm (/ Premix) 50 mls @ 100 mls/hr IV ONCALL [facility] Ketorolac Tromethamine (Toradol) 15 mg IVPUSH ONARRIVE [facility] Last Admin: 04/16/17 08:00 Dose: 15 mg Levothyroxine Sodium (Levothyroxine) 112 mcg PO DAILY [facility] Last Admin: 04/17/17 08:28 Dose: 112 mcg Losartan Potassium (Cozaar) 50 mg PO DAILY [facility] Last Admin: 04/17/17 08:28 Dose: 50 mg Morphine Sulfate (Morphine) 1 - 3 mg IVPUSH Q3H PRN PRN Reason: Pain Last Admin: 04/17/17 15:56 Dose: 3 mg Ondansetron HCl (Zofran) 4 mg IV Q6HR PRN PRN Reason: NAUSEA/VOMITING Last Admin: 04/17/17 15:56 Dose: 4 mg Oxycodone HCl (Oxycontin) 10 mg PO ONARRIVE [facility] Last Admin: 04/17/17 08:27 Dose: 10 mg Oxycodone HCl (Oxycodone) 5 - 10 mg PO Q4H PRN PRN Reason: Pain Last Admin: 04/18/17 00:24 Dose: 10 mg Oxycodone HCl (Oxycontin) 10 mg PO Q12HR [facility] Last Admin: 04/17/17 20:31 Dose: 10 mg Scopolamine (Transderm-Scop) 1.5 mg TRDERM ONARRIVE [facility] Last Admin: 04/16/17 07:56 Dose: 1.5 mg Simvastatin (Zocor) 80 mg PO BEDTIME [facility] Last Admin: 04/17/17 20:31 Dose: 80 mg Sodium Chloride (Saline Flush) 10 ml FLUSH ASDIRECTED PRN PRN Reason: Keep Vein Open Sodium Chloride (Saline Flush) 2.5 ml FLUSH ASDIRECTED PRN PRN Reason: Keep Vein Open Discontinued Medications Cefazolin Sodium (Ancef) Confirm Administered Dose 2 gm .ROUTE .STK-MED ONE Stop: 04/16/17 09:06 Cefazolin Sodium (Ancef) Confirm Administered Dose 1 gm .ROUTE .STK-MED ONE Stop: 04/16/17 09:26 Celecoxib (Celebrex) 200 mg PO BID [facility] Ephedrine Sulfate (Ephedrine Sulfate) Confirm Administered Dose 50 mg .ROUTE .STK-MED ONE Stop: 04/16/17 09:10 Fentanyl (Sublimaze) Confirm Administered Dose 250 mcg .ROUTE .STK-MED ONE Stop: 04/16/17 07:05 Fentanyl (Sublimaze) 50 mcg IVPUSH Q5M PRN PRN Reason: Pain (severe 7-10) Stop: 04/17/17 09:30 Furosemide (Lasix) 40 mg PO DAILY [facility] Last Admin: 04/17/17 08:31 Dose: 40 mg Glycopyrrolate () Confirm Administered Dose 1 mg .ROUTE .STK-MED ONE Stop: 04/16/17 09:44 Sodium Chloride (Normal Saline) Confirm Administered Dose 20 mls @ as directed .ROUTE .STK-MED ONE Stop: 04/16/17 09:06 Sodium Chloride (Normal Saline) Confirm Administered Dose 20 mls @ as directed .ROUTE .STK-MED ONE Stop: 04/16/17 09:06 Sterile Water (Sterile Water For Injection) Confirm Administered Dose 20 mls @ as directed .ROUTE .STK-MED ONE Stop: 04/16/17 09:10 Acetaminophen 1,000 mg/ Premix 100 mls @ 400 mls/hr IV Q6H [facility] Stop: 04/16/17 20:14 Last Admin: 04/16/17 20:35 Dose: 400 mls/hr Cefazolin Sodium/Dextrose 2 gm (/ Premix) 50 mls @ 100 mls/hr IV Q8H [facility] Stop: 04/17/17 02:29 Last Admin: 04/17/17 02:14 Dose: 100 mls/hr Ketorolac Tromethamine (Toradol) 15 mg IVPUSH Q6H [facility] Stop: 04/17/17 09:00 Last Admin: 04/17/17 04:10 Dose: 15 mg Lidocaine (Xylocaine-Mpf 2%) Confirm Administered Dose 5 ml .ROUTE .STK-MED ONE Stop: 04/16/17 07:05 Midazolam HCl (Versed 1 Mg/Ml) Confirm Administered Dose 2 mg .ROUTE .STK-MED ONE Stop: 04/16/17 07:05 Non-Formulary Medication (Vit D3 & K/Berberine Hcl/Hops [Ostera]) 2,000 unit PO DAILY [facility] Non-Formulary Medication (Vitamin B Complex) 100 mg PO DAILY [facility] Ondansetron HCl (Zofran) Confirm Administered Dose 4 mg .ROUTE .STK-MED ONE Stop: 04/16/17 07:05 Phenylephrine HCl (Phenylephrine In Ns 100 Mcg/Ml) Confirm Administered Dose 1 mg .ROUTE .STK-MED ONE Stop: 04/16/17 09:08 Propofol (Diprivan 20 Ml) Confirm Administered Dose 200 mg .ROUTE .STK-MED ONE Stop: 04/16/17 07:05 Rocuronium [place] (Zemuron) Confirm Administered Dose 100 mg .ROUTE .STK-MED ONE Stop: 04/16/17 09:03 Succinylcholine Chloride (Succinylcholine In Ns Pf) Confirm Administered Dose 200 mg .ROUTE .STK-MED ONE Stop: 04/16/17 09:03 Tranexamic Acid (Cyklokapron) Confirm Administered Dose 4,000 mg .ROUTE .STK- MED ONE Stop: 04/16/17 07:43 - Exam Wound/Incisions: Healing Well. No: Drainage, Erythema General: Alert, Oriented Cardiovascular: Regular Rate, Regular Rhythm Extremities: Other (RLE - 1+ edema to knee, at/ehl/gastroc 5/5, dp 2+, sensation intact distally) Physical Findings Comment:: vss, afeb hgb 13.5 - Problem List Review Problem List Initiated/Reviewed/Updated: Yes - My Orders Last 24 Hours: Active Orders 24 hr Category Date Time Status Ready for Discharge [RC] PER UNIT ROUTINE Care 04/18/17 08:13 Ordered Urinary Catheter Removal [RC] Per Unit Routine Care 04/17/17 08:04 Active HEMOGLOBIN/HEMATOCRIT,HH [HEME] DAILY Lab 04/19/17 06:00 Ordered Allopurinol [Zyloprim] Med 04/17/17 09:00 Active 300 mg PO DAILY Aspirin Med 04/17/17 09:00 Active 325 mg PO BID Famotidine [Pepcid] Med 04/17/17 09:00 Active 40 mg PO DAILY Fish Oil/[place]-3 Fatty Acids [Fish Oil] Med 04/17/17 09:00 Active 1 gm PO DAILY Furosemide [Lasix] Med 04/17/17 09:00 Active 20 mg PO QAM Levothyroxine Med 04/17/17 09:00 Active 112 mcg PO DAILY Losartan [Cozaar] Med 04/17/17 09:00 Active 50 mg PO DAILY Sodium Chloride 0.9% [Saline Flush] Med 04/17/17 08:04 Active 10 ml FLUSH ASDIRECTED PRN Sodium Chloride 0.9% [Saline Flush] Med 04/17/17 08:04 Active 2.5 ml FLUSH ASDIRECTED PRN Convert IV to Saline Lock [OM.PC] Routine Oth 04/17/17 08:04 Ordered Medication Orders Acetaminophen (Tylenol Extra Strength) 1,000 mg PO Q6H [facility] Last Admin: 04/18/17 02:17 Dose: 1,000 mg Admin: 04/17/17 20:32 Dose: 1,000 mg Admin: 04/17/17 13:56 Dose: 1,000 mg Admin: 04/17/17 08:25 Dose: 1,000 mg Admin: 04/17/17 02:13 Dose: 1,000 mg Al Hydroxide/Mg Hydroxide (Mag-Al Plus) 30 ml PO Q4H PRN PRN Reason: indigestion Allopurinol (Zyloprim) 300 mg PO DAILY [facility] Last Admin: 04/17/17 08:26 Dose: 300 mg Aspirin (Aspirin) 325 mg PO BID [facility] Last Admin: 04/17/17 20:32 Dose: 325 mg Admin: 04/17/17 08:28 Dose: 325 mg Bisacodyl (Dulcolax) 10 mg RECTAL DAILY PRN PRN Reason: Constipation Cetirizine HCl (Zyrtec) 10 mg PO DAILY PRN PRN Reason: Allergies Diphenhydramine HCl (Benadryl) 25 - 50 mg PO Q6H PRN PRN Reason: Itching Last Admin: 04/17/17 20:31 Dose: 25 mg Docusate Sodium (Colace) 100 mg PO BID [facility] Last Admin: 04/17/17 20:31 Dose: 100 mg Admin: 04/17/17 08:27 Dose: 100 mg Admin: 04/16/17 20:38 Dose: 100 mg Famotidine (Pepcid) 40 mg IVPUSH ONARRIVE [facility] Last Admin: 04/16/17 07:59 Dose: 40 mg Famotidine (Pepcid) 40 mg PO DAILY [facility] Last Admin: 04/17/17 08:28 Dose: 40 mg Fish Oil (Fish Oil) 1 gm PO DAILY [facility] Last Admin: 04/17/17 08:27 Dose: 1 gm Furosemide (Lasix) 20 mg PO QAM [facility] Last Admin: 04/17/17 08:28 Dose: 20 mg Acetaminophen 1,000 mg/ Premix 100 mls @ 400 mls/hr IV ONARRIVE [facility] Last Admin: 04/16/17 08:01 Dose: 400 mls/hr Ropivacaine 49.25 ml/Ketorolac Tromethamine 30 mg/Epinephrine HCl 0.5 mg/ Clonidine HCl 80 mcg/ Sodium Chloride 100 mls @ 50 mls/min INJECT ASDIRECTED [facility] Lactated Ringer's (Ringers, Lactated) 1,000 mls @ 100 mls/hr IV ASDIRECTED [facility] Last Infusion: 04/17/17 08:00 Dose: 100 mls/hr Admin: 04/17/17 00:40 Dose: 100 mls/hr Infusion: 04/16/17 23:05 Dose: 100 mls/hr Admin: 04/16/17 13:05 Dose: 100 mls/hr Infusion: 04/16/17 13:05 Dose: 100 mls/hr Admin: 04/16/17 07:56 Dose: 100 mls/hr Tranexamic Acid 4,000 mg/ (Sodium Chloride) 140 mls @ 600 mls/hr IV ASDIRECTED [facility] Cefazolin Sodium/Dextrose 2 gm (/ Premix) 50 mls @ 100 mls/hr IV ONCALL [facility] Ketorolac Tromethamine (Toradol) 15 mg IVPUSH ONARRIVE [facility] Last Admin: 04/16/17 08:00 Dose: 15 mg Levothyroxine Sodium (Levothyroxine) 112 mcg PO DAILY [facility] Last Admin: 04/17/17 08:28 Dose: 112 mcg Losartan Potassium (Cozaar) 50 mg PO DAILY [facility] Last Admin: 04/17/17 08:28 Dose: 50 mg Morphine Sulfate (Morphine) 1 - 3 mg IVPUSH Q3H PRN PRN Reason: Pain Last Admin: 04/17/17 15:56 Dose: 3 mg Ondansetron HCl (Zofran) 4 mg IV Q6HR PRN PRN Reason: NAUSEA/VOMITING Last Admin: 04/17/17 15:56 Dose: 4 mg Admin: 04/16/17 19:02 Dose: 4 mg Oxycodone HCl (Oxycontin) 10 mg PO ONARRIVE [facility] Last Admin: 04/17/17 08:27 Dose: 10 mg Admin: 04/16/17 07:57 Dose: 10 mg Oxycodone HCl (Oxycodone) 5 - 10 mg PO Q4H PRN PRN Reason: Pain Last Admin: 04/18/17 00:24 Dose: 10 mg Admin: 04/17/17 18:40 Dose: 10 mg Admin: 04/17/17 13:55 Dose: 10 mg Admin: 04/17/17 06:48 Dose: 5 mg Admin: 04/16/17 12:02 Dose: 10 mg Oxycodone HCl (Oxycontin) 10 mg PO Q12HR [facility] Last Admin: 04/17/17 20:31 Dose: 10 mg Admin: 04/17/17 08:41 Dose: Not Given Admin: 04/16/17 20:39 Dose: 10 mg Scopolamine (Transderm-Scop) 1.5 mg TRDERM ONARRIVE [facility] Last Admin: 04/16/17 07:56 Dose: 1.5 mg Simvastatin (Zocor) 80 mg PO BEDTIME [facility] Last Admin: 04/17/17 20:31 Dose: 80 mg Admin: 04/16/17 20:38 Dose: 80 mg Sodium Chloride (Saline Flush) 10 ml FLUSH ASDIRECTED PRN PRN Reason: Keep Vein Open Sodium Chloride (Saline Flush) 2.5 ml FLUSH ASDIRECTED PRN PRN Reason: Keep Vein Open - Assessment Assessment (Free Text/Narrative):: POD#2 R TKA - Plan Plan (Free Text/Narrative):: dressing changed discharge instructions discussed with patient and try to minimize narcotic usage to alleviate confusion once home - may resolve once in a familiar setting d/ch summary #[id number]
--- NOTE | 2017-04-19 06:15 | DISCH ---
DATE OF DISCHARGE: 04/18/2017 PRIMARY CARE PHYSICIAN: Kathleen Eid PCP ADMITTING DIAGNOSIS: Degenerative joint disease, right knee, tricompartmental. OTHER MEDICAL DIAGNOSES: 1. Coronary artery disease. 2. Hypercholesterolemia. 3. Hypertension. 4. Hypothyroidism. 5. Chronic neck and back pain. DISCHARGE DIAGNOSES: 1. Degenerative joint disease, right knee, tricompartmental. 2. Coronary artery disease. 3. Hypercholesterolemia. 4. Hypertension. 5. Hypothyroidism. 6. Chronic neck and back pain. BRIEF HISTORY: Al is a 71-year-old male who has had progressive complaints of right knee pain. He has tried and failed conservative treatment. He has previously undergone a left total knee arthroplasty and has done well with that. At that time, surgical treatment was recommended. On April 16, 2017, the patient underwent a right total knee arthroplasty using patient-specific instrumentation done by Dr. Valerie Garcia. This was done under spinal with general anesthesia. Estimated blood loss was 50 mL. Tourniquet time was 47 minutes. There were no known complications. Upon completion of the procedure, the patient was transferred to the PACU and subsequently to Med/Surg for postoperative care. HOSPITAL COURSE: Postoperatively, the patient did well. He had received 2 doses of Ancef postoperatively for a total of 24 hours of antibiotic coverage. The hospitalist service followed him through his hospital stay for management of his medical comorbidities. Physical therapy followed him through his hospital stay. Aspirin 325 mg twice daily was started on postoperative day #1 as DVT prophylaxis. His vital signs have been stable. He has been afebrile. His hemoglobin on the morning of April 18 was 13.5. Currently, the patient feels he is doing well. His pain is controlled with oral pain medications. He is ambulating well with a wheeled walker. He is tolerating oral intake. He feels comfortable with discharge to home today. DISCHARGE MEDICATIONS: 1. OxyContin 10 mg. 2. Oxycodone 5 mg. 3. Tylenol extra-strength 500 mg. 4. Celebrex 200 mg. 5. Colace 100 mg. 6. Aspirin 325 mg. DISCHARGE INSTRUCTIONS: 1. Follow up in clinic 10 to 14 days from the date of procedure. This appointment has been made for the patient. 2. Outpatient physical therapy 2 to 3 times per week for 4 to 6 weeks. 3. He may not drive for a minimum of 4 weeks status post right total knee arthroplasty. 4. Polar Care to the right knee as needed. 5. GABRIELLA laurae, on in the morning, off in the evening. Should he have questions or concerns prior to followup, he has been advised to return to clinic or call. For complete medication reconciliation and discharge instructions, please refer back to the patient's EHR. INDRA CORREA /[id number] HAYDEN
== END 2017-04-18 11:01 | disposition home or self-care (01) | DRG 470 ==
LOC: MW.MS 06:42
PROVIDERS: ADMIT Orthopaedic Surgery; ATTEND Orthopaedic Surgery
PROC: 0SRC0J9 Replacement of Right Knee Joint with Synthetic Substitute, Cemented, Open Approach (ICD-10-PCS; principal; 2017-04-16)
DX: M17.11 Unilateral primary osteoarthritis, right knee (principal); M94.261 Chondromalacia, right knee; M25.761 Osteophyte, right knee; I25.10 Atherosclerotic heart disease of native coronary artery without angina pectoris; E78.00 Pure hypercholesterolemia, unspecified; I10 Essential (primary) hypertension; E03.9 Hypothyroidism, unspecified; M54.9 Dorsalgia, unspecified; M54.2 Cervicalgia; G89.29 Other chronic pain; F41.9 Anxiety disorder, unspecified; M10.9 Gout, unspecified; K21.9 Gastro-esophageal reflux disease without esophagitis; Z87.891 Personal history of nicotine dependence; Z79.899 Other long term (current) drug therapy
CPT/HCPCS: 01402; 36415; 73560-26-RT; 73560-RT; 80048; 85014; 85018; 85025; 86850; 86900; 86901; 88304; 88311; 97110-GP; 97116-GP; 97161-GP; A9270-GY; C1713; C1776; J0171; J0690; J0735; J1885; J2250; J2270; J2405; J2704; J2795; J3010; J7050; J7120

== ENCOUNTER 2017-09-28 08:11 | Day surgery (SDC) | payer OTHER, MEDICARE ==
[~2017-09-28 08:11] MED LIST changes: -Acetaminophen 1,000 MG in Premix Bag 1 BAG IV SCH; -Famotidine 20 MG/2 ML SDV IVPUSH SCH; -Ketorolac 15 MG/ML SDV IVPUSH SCH; +Lactated Ringers 1,000 ML IV SCH; -Scopolamine 1.5 MG Transdermal Patch TRDERM SCH; +Sodium Chloride 0.9% 10 ML Syringe FLUSH PRN; +Sodium Chloride 0.9% 2.5 ML Syringe FLUSH PRN; +ceFAZolin 2 GM in Premix Bag 1 BAG IV ONE
[2017-09-28] MEDS ORDERED: Dexamethasone 4 MG/ML 5 ML MDV ONE (08:32)
[2017-09-28] MEDS ORDERED: Sodium Chloride 0.9% 20 ML ONE (08:32)
[2017-09-28] MEDS ORDERED: fentaNYL 100 MCG/2 ML SDV ONE (08:32)
[2017-09-28] MEDS ORDERED: Ondansetron 4 MG/2 ML SDV ONE (08:32)
[2017-09-28] MEDS ORDERED: Propofol 200 MG/20 ML SDV ONE (08:32)
--- NOTE | 2017-09-28 08:41 | PCM.PREANE ---
Preanesthetic Assessment - Anesthesia/Transfusion/Family Hx Anesthesia History: Prior Anesthesia Without Reaction Family History of Anesthesia Reaction: No Transfusion History: No Prior Transfusion(s) Intubation History: Unknown - Review of Systems General: No Symptoms Pulmonary: No Symptoms Cardiovascular: No Symptoms Gastrointestinal: No Symptoms Neurological: No Symptoms Other: Reports: None - Physical Assessment Height: 1.63 m Weight: 113.852 kg ASA Class: 3 Mental Status: Alert & Oriented x3 Airway Class: Mallampati = 2 Dentition: Reports: Normal Dentition Thyro-Mental Finger Breadths: 2 Mouth Opening Finger Breadths: 2 ROM/Head Extension: Limited/Partial Lungs: Clear to Auscultation, Normal Respiratory Effort Cardiovascular: Regular Rate, Regular Rhythm - Allergies Allergies/Adverse Reactions: Allergies Allergy/AdvReac Type Severity Reaction Status Date / Time No Known Allergies Allergy Verified 09/27/17 16:58 - Blood Blood Available: No - Anesthesia Plan Pre-Op Medication Ordered: None - Acknowledgements Anesthesia Type Planned: General Anesthesia Pt an Appropriate Candidate for the Planned Anesthesia: Yes Alternatives and Risks of Anesthesia Discussed w Pt/Guardian: Yes Pt/Guardian Understands and Agrees with Anesthesia Plan: Yes PreAnesthesia Questionnaire HEENT History: Reports: Cataract, Sinusitis Other HEENT History: wears glasses Cardiovascular History: Reports: CAD, High Cholesterol, Hypertension, SOB on Exertion Respiratory History: Reports: None Gastrointestinal History: Reports: GERD Genitourinary History: Reports: Renal Calculus Other Genitourinary History: takes Allopurinol for kidney stones Musculoskeletal History: Reports: Arthritis, Back Pain, Chronic, Neck Pain, Chronic Neurological History: Reports: None Psychiatric History: Reports: None Endocrine/Metabolic History: Reports: Hypothyroidism, Obesity/BMI 30+ Hematologic History: Reports: None Immunologic History: Reports: None Oncologic (Cancer) History: Reports: Other (See Below) Other Oncologic History: questionable lump removed from right arm/shoulder area many years ago Dermatologic History: Reports: Eczema Other Dermatologic History: on elbow - Past Surgical History Head Surgeries/Procedures: Reports: None HEENT Surgical History: Reports: Oral Surgery, Tonsillectomy Other Cardiovascular Surgeries/Procedures: cardiac angiogram Respiratory Surgical History: Reports: None GI Surgical History: Reports: None Male Surgical History: Reports: Renal Calculus (laser litox3, last one in ), Ureteral Stent Endocrine Surgical History: Reports: None Neurological Surgical History: Reports: None Musculoskeletal Surgical History: Reports: Knee Replacement (left 08/25, right 04/26), Other (See Below) Other Musculoskeletal Surgeries/Procedures:: right biceps tendon repair, bilateral TKA Oncologic Surgical History: Reports: None - History Comment History Comment: etoh "rare" - SUBSTANCE USE Smoking Status *Q: Former Smoker Tobacco Use Within Last Twelve Months: No Recreational Drug Use History: No - HOME MEDS Home Medications: Home Meds Allopurinol [Zyloprim] 300 mg PO DAILY 08/16/16 [History] Furosemide 40 mg PO QAM 08/16/16 [History] Levothyroxine Sodium [Synthroid] 112 mcg PO DAILY 08/16/16 [History] [place]-3/DHA/Epa/Fish Oil [[place]-3 Fish Oil 1,000 MG Sfgl] 1,000 mg PO DAILY 03/25 [History] Simvastatin [Zocor] 80 mg PO BEDTIME 08/16/16 [History] Vitamin B Complex [B Complex] 100 mg PO DAILY 08/16/16 [History] Losartan Potassium 50 mg PO QAM 04/13/17 [History] Celecoxib [CeleBREX] 200 mg PO DAILY #45 cap 04/16/17 [Rx] Acetaminophen [Tylenol Extra Strength] 1,000 mg PO Q6H PRN 09/27/17 [History] Cholecalciferol (Vitamin D3) [Vitamin D3] 1,000 unit PO DAILY 09/27/17 [History] Tamsulosin HCl 0.4 mg PO BEDTIME 09/27/17 [History] - CURRENT (IN HOUSE) MEDS Current Meds: Current Medications Lactated Ringer's (Ringers, Lactated) 1,000 mls @ 100 mls/hr IV ASDIRECTED [facility]I Last Admin: 09/28/17 08:37 Dose: 100 mls/hr Sodium Chloride (Saline Flush) 10 ml FLUSH ASDIRECTED PRN PRN Reason: Keep Vein Open Sodium Chloride (Saline Flush) 2.5 ml FLUSH ASDIRECTED PRN PRN Reason: Keep Vein Open Discontinued Medications Dexamethasone (Dexamethasone) Confirm Administered Dose 20 mg .ROUTE .STK-MED ONE Stop: 09/28/17 08:33 Fentanyl (Sublimaze) Confirm Administered Dose 100 mcg .ROUTE .STK-MED ONE Stop: 09/28/17 08:33 Cefazolin Sodium/Dextrose 2 gm (/ Premix) 50 mls @ 100 mls/hr IV ONCALL ONE Stop: 09/28/17 07:29 Sodium Chloride (Normal Saline) Confirm Administered Dose 20 mls @ as directed .ROUTE .STK-MED ONE Stop: 09/28/17 08:33 Ondansetron HCl (Zofran) Confirm Administered Dose 4 mg .ROUTE .STK-MED ONE Stop: 09/28/17 08:33 Propofol (Diprivan 20 Ml) Confirm Administered Dose 200 mg .ROUTE .STK-MED ONE Stop: 09/28/17 08:33
[2017-09-28] MEDS ORDERED: Midazolam 1 MG/ML 2 ML SDV ONE (10:09)
[2017-09-28] MEDS ORDERED: Iopamidol 408 MG/ML 50 ML SDV ONE (10:17)
[2017-09-28] MEDS ORDERED: fentaNYL 100 MCG/2 ML SDV IVPUSH PRN (10:35)
[2017-09-28] MEDS ORDERED: Rocuronium 10 MG/ML 10 ML Syringe ONE (10:38)
[2017-09-28] MEDS ORDERED: Succinylcholine/Normal Saline 200 MG/10 ML Syringe ONE (10:38)
[2017-09-28] MEDS ORDERED: Phenylephrine/Normal Saline 100 MCG/ML 10 ML Syringe ONE (11:07)
[2017-09-28] MEDS ORDERED: ePHEDrine 50 MG/ML SDV ONE (11:10)
--- NOTE | 2017-09-28 12:23 | PCM.POSTAN ---
POST ANESTHESIA ASSESSMENT - MENTAL STATUS Mental Status: Alert, Oriented - RESPIRATORY Respiratory Status: Respiratory Rate WNL, Airway Patent, O2 Saturation Stable - CARDIOVASCULAR CV Status: Pulse Rate WNL, Blood Pressure Stable - GASTROINTESTINAL GI Status: No Symptoms - PAIN Pain Score: 0 - POST OP HYDRATION Hydration Status: Adequate & Stable
[2017-09-28 13:54] VITALS: BP 136/75
--- NOTE | 2017-09-28 15:43 | OR ---
SURGEON: Negro Lazaro M.D. DATE OF PROCEDURE: 09/28/2017 PREOPERATIVE DIAGNOSIS: Right renal pelvis stone, large. POSTOPERATIVE DIAGNOSIS: Right renal pelvis stone, large. OPERATION: ESWL plus cystoscopy, double-J stent placement. DESCRIPTION OF PROCEDURE: The patient was given general anesthesia, the position of the patient was adjusted, so the stone could be treated and eventually received 2400 shocks. Progression is monitored throughout the treatment, and it appears that the stone might have been only partially broken. With that done, the patient was then placed in dorsal lithotomy position. Cystoscopy was done showed an enlarged partially obstructive prostate with a prominent median lobe. A 6-Hebrew 26 cm double-J stent was advanced over the guidewire. Position was confirmed on fluoroscopy. The bladder was emptied, and the patient was moved to recovery room in good condition. PLAN: He will come to the office next week. We will do a CT scan of abdomen and pelvis without contrast to see where the stone is at and plan the next step. CAROLINA / SUNNY /[id number]
== END 2017-09-28 13:15 | disposition home or self-care (01) ==
LOC: MW.SDS 08:11
PROVIDERS: ATTEND Urology
DX: N13.2 Hydronephrosis with renal and ureteral calculous obstruction (principal); F41.9 Anxiety disorder, unspecified; R74.8 Abnormal levels of other serum enzymes; K21.9 Gastro-esophageal reflux disease without esophagitis; M10.9 Gout, unspecified; E78.00 Pure hypercholesterolemia, unspecified; I10 Essential (primary) hypertension; E03.9 Hypothyroidism, unspecified; M75.40 Impingement syndrome of unspecified shoulder; R35.1 Nocturia; N40.1 Benign prostatic hyperplasia with lower urinary tract symptoms; I25.10 Atherosclerotic heart disease of native coronary artery without angina pectoris; E66.9 Obesity, unspecified; J30.2 Other seasonal allergic rhinitis; Z96.653 Presence of artificial knee joint, bilateral; Z79.899 Other long term (current) drug therapy; Z90.89 Acquired absence of other organs; Z87.891 Personal history of nicotine dependence; Z68.41 Body mass index [BMI] 40.0-44.9, adult
CPT/HCPCS: 50590; 52332; C2625; J1100; J2250; J2405; J3010; J7120; 00873; J2704; Q9966

== ENCOUNTER 2017-10-04 07:37 | Day surgery (SDC) | payer OTHER, MEDICARE ==
[~2017-10-04 07:37] MED LIST changes: +Dexamethasone 4 MG/ML 5 ML MDV ONE; +Midazolam 1 MG/ML 2 ML SDV ONE; +Ondansetron 4 MG/2 ML SDV ONE; +Propofol 200 MG/20 ML SDV ONE; +fentaNYL 100 MCG/2 ML SDV ONE
[2017-10-04] MEDS ORDERED: Succinylcholine/Normal Saline 200 MG/10 ML Syringe ONE (08:29)
[2017-10-04] MEDS ORDERED: Rocuronium 10 MG/ML 10 ML Syringe ONE (08:29)
--- NOTE | 2017-10-04 08:53 | PCM.PREANE ---
Preanesthetic Assessment - Anesthesia/Transfusion/Family Hx Anesthesia History: Prior Anesthesia Without Reaction Family History of Anesthesia Reaction: No Transfusion History: No Prior Transfusion(s) Intubation History: Unknown - Review of Systems General: No Symptoms Pulmonary: No Symptoms Cardiovascular: No Symptoms Gastrointestinal: No Symptoms Neurological: No Symptoms Other: Reports: None - Physical Assessment NPO Status Date: 10/03/17 Height: 1.63 m Weight: 112.037 kg ASA Class: 2 Mental Status: Alert & Oriented x3 Airway Class: Mallampati = 2 Dentition: Reports: Normal Dentition ROM/Head Extension: Full Lungs: Clear to Auscultation, Normal Respiratory Effort Cardiovascular: Regular Rate, Regular Rhythm - Allergies Allergies/Adverse Reactions: Allergies Allergy/AdvReac Type Severity Reaction Status Date / Time No Known Allergies Allergy Verified 10/03/17 16:09 - Acknowledgements Anesthesia Type Planned: General Anesthesia Pt an Appropriate Candidate for the Planned Anesthesia: Yes Alternatives and Risks of Anesthesia Discussed w Pt/Guardian: Yes Pt/Guardian Understands and Agrees with Anesthesia Plan: Yes PreAnesthesia Questionnaire HEENT History: Reports: Cataract, Sinusitis Other HEENT History: wears glasses Cardiovascular History: Reports: CAD, High Cholesterol, Hypertension, SOB on Exertion Respiratory History: Reports: None Gastrointestinal History: Reports: GERD Genitourinary History: Reports: Renal Calculus Other Genitourinary History: takes Allopurinol for kidney stones Musculoskeletal History: Reports: Arthritis, Back Pain, Chronic, Neck Pain, Chronic Neurological History: Reports: None Psychiatric History: Reports: None Endocrine/Metabolic History: Reports: Hypothyroidism, Obesity/BMI 30+ Hematologic History: Reports: None Immunologic History: Reports: None Oncologic (Cancer) History: Reports: Other (See Below) Other Oncologic History: questionable lump removed from right arm/shoulder area many years ago Dermatologic History: Reports: Eczema Other Dermatologic History: on elbow - Past Surgical History Head Surgeries/Procedures: Reports: None HEENT Surgical History: Reports: Oral Surgery, Tonsillectomy Other Cardiovascular Surgeries/Procedures: cardiac angiogram Respiratory Surgical History: Reports: None GI Surgical History: Reports: None Female Surgical History: Male Surgical History: Reports: Lithotripsy (ESWL), Renal Calculus, Ureteral Stent Endocrine Surgical History: Reports: None Neurological Surgical History: Reports: None Musculoskeletal Surgical History: Reports: Knee Replacement, Other (See Below) Other Musculoskeletal Surgeries/Procedures:: right biceps tendon repair, bilateral TKA Oncologic Surgical History: Reports: None - History Comment History Comment: etoh "rare" - SUBSTANCE USE Smoking Status *Q: Former Smoker Tobacco Use Within Last Twelve Months: No Recreational Drug Use History: No - HOME MEDS Home Medications: Home Meds Allopurinol [Zyloprim] 300 mg PO DAILY 08/16/16 [History] Furosemide 40 mg PO QAM 08/16/16 [History] Levothyroxine Sodium [Synthroid] 112 mcg PO DAILY 08/16/16 [History] [place]-3/DHA/Epa/Fish Oil [[place]-3 Fish Oil 1,000 MG Sfgl] 1,000 mg PO DAILY 03/25 [History] Simvastatin [Zocor] 80 mg PO BEDTIME 08/16/16 [History] Vitamin B Complex [B Complex] 100 mg PO DAILY 08/16/16 [History] Losartan Potassium 50 mg PO QAM 04/13/17 [History] Celecoxib [CeleBREX] 200 mg PO DAILY #45 cap 04/16/17 [Rx] Acetaminophen [Tylenol Extra Strength] 1,000 mg PO Q6H PRN 09/27/17 [History] Cholecalciferol (Vitamin D3) [Vitamin D3] 1,000 unit PO DAILY 09/27/17 [History] Tamsulosin HCl 0.4 mg PO BEDTIME 09/27/17 [History] - CURRENT (IN HOUSE) MEDS Current Meds: Current Medications Lactated Ringer's (Ringers, Lactated) 1,000 mls @ 100 mls/hr IV ASDIRECTED SRINI Sodium Chloride (Saline Flush) 10 ml FLUSH ASDIRECTED PRN PRN Reason: Keep Vein Open Sodium Chloride (Saline Flush) 2.5 ml FLUSH ASDIRECTED PRN PRN Reason: Keep Vein Open Discontinued Medications Dexamethasone (Dexamethasone) Confirm Administered Dose 20 mg .ROUTE .STK-MED ONE Stop: 10/04/17 07:04 Fentanyl (Sublimaze) Confirm Administered Dose 100 mcg .ROUTE .STK-MED ONE Stop: 10/04/17 07:03 Cefazolin Sodium/Dextrose 2 gm (/ Premix) 50 mls @ 100 mls/hr IV ONCALL ONE Stop: 10/04/17 07:29 Cefazolin Sodium/Dextrose (Ancef) Confirm Administered Dose 50 mls @ as directed .ROUTE .STK-MED ONE Stop: 10/04/17 08:01 Lidocaine HCl (Xylocaine-Mpf 1%) Confirm Administered Dose 5 ml .ROUTE .STK-MED ONE Stop: 10/04/17 07:04 Midazolam HCl (Versed 1 Mg/Ml) Confirm Administered Dose 2 mg .ROUTE .STK-MED ONE Stop: 10/04/17 07:03 Ondansetron HCl (Zofran) Confirm Administered Dose 4 mg .ROUTE [email or web address] ONE Stop: 10/04/17 07:04 Propofol (Diprivan 20 Ml) Confirm Administered Dose 200 mg .ROUTE [email or web address] ONE Stop: 10/04/17 07:03 Rocuronium [place] (Zemuron) Confirm Administered Dose 100 mg .ROUTE .[email or web address] ONE Stop: 10/04/17 08:30 Succinylcholine Chloride (Succinylcholine In Ns Pf) Confirm Administered Dose 200 mg .ROUTE .[email or web address] ONE Stop: 10/04/17 08:30
[2017-10-04] MEDS ORDERED: Phenylephrine/Normal Saline 100 MCG/ML 10 ML Syringe ONE ×2 (10:25→11:01)
[2017-10-04] MEDS ORDERED: fentaNYL 100 MCG/2 ML SDV IVPUSH PRN ×2 (10:37→13:10)
[2017-10-04] MEDS ORDERED: ePHEDrine 50 MG/ML SDV ONE (10:43)
[2017-10-04] MEDS ORDERED: Phenylephrine 1% 10 MG/ML SDV ONE (11:08)
--- NOTE | 2017-10-04 13:11 | PCM.POSTAN ---
POST ANESTHESIA ASSESSMENT - MENTAL STATUS Mental Status: Alert, Oriented - RESPIRATORY Respiratory Status: Respiratory Rate WNL, Airway Patent, O2 Saturation Stable - CARDIOVASCULAR CV Status: Pulse Rate WNL, Blood Pressure Stable - GASTROINTESTINAL GI Status: No Symptoms - POST OP HYDRATION Hydration Status: Adequate & Stable
[2017-10-04] MEDS ORDERED: Ketorolac 30 MG/ML SDV IVPUSH ONE (14:36)
[2017-10-04] MEDS ORDERED: Acetaminophen 1,000 MG in Premix Bag 1 BAG IV ONE (14:37)
--- NOTE | 2017-10-04 15:31 | CR ---
EXAMINATION: Right ureteroscopy HISTORY: Stone COMPARISON: CT dated 10/03/2017 TECHNIQUE: Single view FINDINGS/IMPRESSION: There is a partially visualized nephroureteral stent projecting over the right c ollecting system.
[2017-10-04 17:06] VITALS: BP 122/84
--- NOTE | 2017-10-11 20:50 | OR ---
SURGEON: Negro Lazaro M.D. DATE OF PROCEDURE: 10/04/2017 PREOPERATIVE DIAGNOSIS: Large right renal pelvis stone. POSTOPERATIVE DIAGNOSIS: Large right renal pelvis stone. OPERATION: Ureteroscopy and renoscopy with laser lithotripsy. DESCRIPTION OF PROCEDURE: The patient was given general anesthesia, placed in dorsal lithotomy position, prepped and draped in sterile drapes. Cystourethroscopy was done. The existing double-J stent was removed. A guidewire and Glidewire were advanced in the right ureter all the way up into the renal pelvis. The rigid ureteroscope was initially advanced in the ureter, and I was able to see the stone. I placed an Accordion type stent to keep the stone in place and proceeded to release the stone. Eventually, the stone was small enough to bypass the Accordion and went into the renal pelvis. It was chased into the renal pelvis. Further work was done until the stone was adequately broken. The largest left piece might be 3.5 mm. I was not able to corner that piece and break it up into smaller fragments. With that done, a double-J stent was put back, and the bladder was emptied. The string at the end of the stent was taped to the outside of the penis and the patient was moved to recovery room in good condition. CAROLINA / SUNNY /[id number]
== END 2017-10-04 15:15 | disposition home or self-care (01) ==
LOC: MW.SDS 07:37
PROVIDERS: ATTEND Urology
DX: N13.2 Hydronephrosis with renal and ureteral calculous obstruction (principal); F41.9 Anxiety disorder, unspecified; K21.9 Gastro-esophageal reflux disease without esophagitis; M10.9 Gout, unspecified; E78.00 Pure hypercholesterolemia, unspecified; I10 Essential (primary) hypertension; E03.9 Hypothyroidism, unspecified; M75.40 Impingement syndrome of unspecified shoulder; J30.2 Other seasonal allergic rhinitis; J32.9 Chronic sinusitis, unspecified; I25.10 Atherosclerotic heart disease of native coronary artery without angina pectoris; E66.9 Obesity, unspecified; Z96.653 Presence of artificial knee joint, bilateral; Z79.899 Other long term (current) drug therapy; Z90.89 Acquired absence of other organs; Z87.891 Personal history of nicotine dependence; Z68.41 Body mass index [BMI] 40.0-44.9, adult
CPT/HCPCS: 52356; 76001; C1769; C2625; J1100; J1885; J2250; J2370; J2405; J3010; J7120; 00910; J0690; J2704

== ENCOUNTER 2017-10-12 15:21 | Day surgery (SDC) | payer OTHER, MEDICARE ==
[~2017-10-12 15:21] MED LIST changes: -Dexamethasone 4 MG/ML 5 ML MDV ONE; +Iopamidol 408 MG/ML 50 ML SDV ONE; -Midazolam 1 MG/ML 2 ML SDV ONE; -Ondansetron 4 MG/2 ML SDV ONE; -Propofol 200 MG/20 ML SDV ONE; -fentaNYL 100 MCG/2 ML SDV ONE
[2017-10-12] MEDS ORDERED: Propofol 200 MG/20 ML SDV ONE ×2 (17:41→19:17)
[2017-10-12] MEDS ORDERED: Ketamine 500 mg/10 ML MDV ONE (17:41)
[2017-10-12] MEDS ORDERED: fentaNYL 100 MCG/2 ML SDV ONE ×2 (17:42→19:02)
--- NOTE | 2017-10-12 17:42 | PCM.PREANE ---
Preanesthetic Assessment - Anesthesia/Transfusion/Family Hx Anesthesia History: Prior Anesthesia Without Reaction Transfusion History: No Prior Transfusion(s) Intubation History: Unknown - Review of Systems General: No Symptoms Pulmonary: No Symptoms Cardiovascular: No Symptoms Gastrointestinal: No Symptoms Neurological: No Symptoms Other: Reports: None - Physical Assessment O2 Sat by Pulse Oximetry: 93 Respiratory Rate: 18 Vital Signs: Last Vital Signs Temp 96.9 F 10/12/17 17:15 Pulse 85 10/12/17 17:15 Resp 18 10/12/17 17:15 BP 125/71 10/12/17 17:15 Pulse Ox 93 L 10/12/17 17:15 Height: 5 ft 4 in Weight: 110.767 kg ASA Class: 3 Mental Status: Alert & Oriented x3 Airway Class: Mallampati = 2 Dentition: Reports: Normal Dentition Thyro-Mental Finger Breadths: 3 Mouth Opening Finger Breadths: 3 ROM/Head Extension: Limited/Partial Lungs: Clear to Auscultation, Normal Respiratory Effort, Decreased Breath Sounds (Bilateral Bases) Cardiovascular: Regular Rate, Regular Rhythm - Allergies Allergies/Adverse Reactions: Allergies Allergy/AdvReac Type Severity Reaction Status Date / Time No Known Allergies Allergy Verified 10/11/17 16:17 - Acknowledgements Anesthesia Type Planned: General Anesthesia Pt an Appropriate Candidate for the Planned Anesthesia: Yes Alternatives and Risks of Anesthesia Discussed w Pt/Guardian: Yes Pt/Guardian Understands and Agrees with Anesthesia Plan: Yes PreAnesthesia Questionnaire HEENT History: Reports: Cataract, Sinusitis Other HEENT History: wears glasses Cardiovascular History: Reports: CAD, High Cholesterol, Hypertension, SOB on Exertion Respiratory History: Reports: None Gastrointestinal History: Reports: GERD Genitourinary History: Reports: Renal Calculus Other Genitourinary History: takes Allopurinol for kidney stones Musculoskeletal History: Reports: Arthritis, Back Pain, Chronic, Neck Pain, Chronic Neurological History: Reports: None Psychiatric History: Reports: None Endocrine/Metabolic History: Reports: Hypothyroidism, Obesity/BMI 30+ Hematologic History: Reports: None Immunologic History: Reports: None Oncologic (Cancer) History: Reports: Other (See Below) Other Oncologic History: questionable lump removed from right arm/shoulder area many years ago Dermatologic History: Reports: Eczema Other Dermatologic History: on elbow - Past Surgical History Head Surgeries/Procedures: Reports: None HEENT Surgical History: Reports: Oral Surgery, Tonsillectomy Other Cardiovascular Surgeries/Procedures: cardiac angiogram Respiratory Surgical History: Reports: None GI Surgical History: Reports: None Male Surgical History: Reports: Lithotripsy (ESWL), Renal Calculus, Ureteral Stent Endocrine Surgical History: Reports: None Neurological Surgical History: Reports: None Musculoskeletal Surgical History: Reports: Knee Replacement, Other (See Below) Other Musculoskeletal Surgeries/Procedures:: right biceps tendon repair, bilateral TKA Oncologic Surgical History: Reports: None - History Comment History Comment: etoh "rare" - SUBSTANCE USE Smoking Status *Q: Never Smoker Tobacco Use Within Last Twelve Months: No Second Hand Smoke Exposure: No Recreational Drug Use History: No - HOME MEDS Home Medications: Home Meds Allopurinol [Zyloprim] 300 mg PO DAILY 08/16/16 [History] Furosemide 40 mg PO QAM 08/16/16 [History] Levothyroxine Sodium [Synthroid] 112 mcg PO DAILY 08/16/16 [History] [place]-3/DHA/Epa/Fish Oil [[place]-3 Fish Oil 1,000 MG Sfgl] 1,000 mg PO DAILY 03/25 [History] Vitamin B Complex [B Complex] 100 mg PO DAILY 08/16/16 [History] Losartan Potassium 50 mg PO QAM 04/13/17 [History] Celecoxib [CeleBREX] 200 mg PO DAILY #45 cap 04/16/17 [Rx] Cholecalciferol (Vitamin D3) [Vitamin D3] 1,000 unit PO DAILY 09/27/17 [History] Tamsulosin HCl 0.4 mg PO BEDTIME 09/27/17 [History] - CURRENT (IN HOUSE) MEDS Current Meds: Current Medications Lactated Ringer's (Ringers, Lactated) 1,000 mls @ 100 mls/hr IV ASDIRECTED SRINI Last Admin: 10/12/17 16:28 Dose: 100 mls/hr Sodium Chloride (Saline Flush) 10 ml FLUSH ASDIRECTED PRN PRN Reason: Keep Vein Open Sodium Chloride (Saline Flush) 2.5 ml FLUSH ASDIRECTED PRN PRN Reason: Keep Vein Open Discontinued Medications Cefazolin Sodium/Dextrose 2 gm (/ Premix) 50 mls @ 100 mls/hr IV ONETIME ONE Stop: 10/12/17 07:29 Iopamidol (Isovue-200 (41%)) Confirm Administered Dose 50 ml .ROUTE .STK-MED ONE Stop: 10/12/17 15:21
[2017-10-12] MEDS ORDERED: Ondansetron 4 MG/2 ML SDV ONE (17:44)
[2017-10-12] MEDS ORDERED: diphenhydrAMINE 50 MG/ML SDV ONE (17:44)
[2017-10-12] MEDS ORDERED: Succinylcholine/Normal Saline 200 MG/10 ML Syringe ONE (17:44)
[2017-10-12] MEDS ORDERED: Rocuronium 10 MG/ML 10 ML Syringe ONE (17:44)
[2017-10-12] MEDS ORDERED: ceFAZolin 1 GM Vial ONE (18:20)
[2017-10-12] MEDS ORDERED: ePHEDrine 50 MG/ML SDV ONE (18:32)
[2017-10-12] MEDS ORDERED: Neostigmine Methylsulfate 1 MG/ML 5 ML Syringe ONE (18:38)
[2017-10-12] MEDS ORDERED: Glycopyrrolate 0.2 MG/ML SDV ONE (18:38)
--- NOTE | 2017-10-12 20:11 | PCM.POSTAN ---
POST ANESTHESIA ASSESSMENT - MENTAL STATUS Mental Status: Alert, Oriented - VITAL SIGNS Pulse Rate: 90 SaO2: 93 Resp Rate: 14 Blood Pressure: 115/60 - RESPIRATORY Respiratory Status: Respiratory Rate WNL, Airway Patent, O2 Saturation Stable - CARDIOVASCULAR CV Status: Pulse Rate WNL, Blood Pressure Stable - GASTROINTESTINAL GI Status: No Symptoms - POST OP HYDRATION Hydration Status: Adequate & Stable
[2017-10-12 22:50] VITALS: BP 118/78
--- NOTE | 2017-10-13 00:25 | OR ---
SURGEON: Negro Lazaro M.D. DATE OF PROCEDURE: 10/12/2017 PREOPERATIVE DIAGNOSES: Multiple renal pelvis stones, status post ESWL and laser lithotripsy with an obstructive stone in the ureter. POSTOPERATIVE DIAGNOSES: Multiple renal pelvis stones, status post ESWL and laser lithotripsy with an obstructive stone in the ureter. OPERATION: Ureteroscopy, removal of ureteral stone, renoscopy and laser lithotripsy for the remaining stones. INDICATIONS: The end result, multiple small pieces appeared to be all passable size. DESCRIPTION OF PROCEDURE: The patient was given general anesthesia and placed in dorsal lithotomy position, prepped and draped in sterile drapes. A guidewire was advanced in the right ureter and ureteroscopy was done taking the small stones out of the ureter. Renoscopy was also done with a rigid ureteroscope, but that did not allow me to see any of the stones, so another guidewire was put in and the flexible ureteroscope was advanced in the renal pelvis and eventually all the stones including the large remaining one which was close to 9 mm were all broken up into a multitude of small pieces. With that done, the procedure was terminated and a 6-[place] 26 cm double-J stent was placed and the string at the end of the stents taped to the outside of the penis. The bladder was emptied and the patient was moved to recovery room in good condition. CAROLINA / SUNNY /[id number]
--- NOTE | 2017-10-15 10:17 | CR ---
EXAMINATION: Cystoscopy HISTORY: Stones COMPARISON: 10/11/2017 TECHNIQUE: 2 views FINDINGS/IMPRESSION: Operative control films demonstrate placement of a right-sided nephroureteral st ent within the right renal collecting system.
== END 2017-10-12 22:30 | disposition home or self-care (01) ==
LOC: MW.SDS 15:21 → MW.MS 15:51 → MW.SDS 22:30
PROVIDERS: ATTEND Urology
DX: N20.2 Calculus of kidney with calculus of ureter (principal); F41.9 Anxiety disorder, unspecified; K21.9 Gastro-esophageal reflux disease without esophagitis; M10.9 Gout, unspecified; I10 Essential (primary) hypertension; E03.9 Hypothyroidism, unspecified; J30.9 Allergic rhinitis, unspecified; I25.10 Atherosclerotic heart disease of native coronary artery without angina pectoris; E66.9 Obesity, unspecified; E78.00 Pure hypercholesterolemia, unspecified; Z96.653 Presence of artificial knee joint, bilateral; Z79.899 Other long term (current) drug therapy; Z90.89 Acquired absence of other organs; Z87.891 Personal history of nicotine dependence; Z68.41 Body mass index [BMI] 40.0-44.9, adult
CPT/HCPCS: 52356; 76001; J0690; J1200; J2405; J3010; J7120; 00910; 00912; 88300; C1769; C2625; J2704; Q9966

== ENCOUNTER 2021-08-23 07:57 | Day surgery (SDC) | payer OTHER, MEDICARE ==
[~2021-08-23 07:57] MED LIST changes: -Iopamidol 408 MG/ML 50 ML SDV ONE; +Sodium Chloride 0.9% 20 ML SDV IV PRN; -ceFAZolin 2 GM in Premix Bag 1 BAG IV ONE
--- NOTE | 2021-08-23 09:32 | PCM.PREANE ---
Preanesthetic Assessment - Anesthesia/Transfusion/Family Hx Anesthesia History: Prior Anesthesia Without Reaction Transfusion History: No Prior Transfusion(s) Intubation History: Unknown - Review of Systems General: No Symptoms Pulmonary: No Symptoms Cardiovascular: No Symptoms, Other (A flutter) Gastrointestinal: No Symptoms Neurological: No Symptoms Other: Reports: None - Physical Assessment NPO Status Date: 08/23/21 NPO Status Time: 00:00 Vital Signs: Last Vital Signs Temp 97.2 F 08/23/21 08:15 Pulse 91 08/23/21 08:15 Resp 15 08/23/21 08:15 BP 105/60 08/23/21 08:15 Pulse Ox 95 08/23/21 08:15 Height: 5 ft 4 in Weight: 215 lb ASA Class: 3 Mental Status: Alert & Oriented x3 Airway Class: Mallampati = 2 Dentition: Reports: Normal Dentition Thyro-Mental Finger Breadths: 3 Mouth Opening Finger Breadths: 3 ROM/Head Extension: Full Lungs: Clear to Auscultation, Normal Respiratory Effort Cardiovascular: Regular Rate, Regular Rhythm - Allergies Allergies/Adverse Reactions: Allergies Allergy/AdvReac Type Severity Reaction Status Date / Time No Known Allergies Allergy Verified 08/17/21 11:19 - Acknowledgements Anesthesia Type Planned: General Anesthesia Pt an Appropriate Candidate for the Planned Anesthesia: Yes Alternatives and Risks of Anesthesia Discussed w Pt/Guardian: Yes Pt/Guardian Understands and Agrees with Anesthesia Plan: Yes PreAnesthesia Questionnaire HEENT History: Reports: Cataract Other HEENT History: wears glasses Cardiovascular History: Reports: Arrhythmia, CAD, High Cholesterol, Hypertension Other Cardiovascular History: atrial flutter Respiratory History: Reports: None Gastrointestinal History: Reports: Other (See Below) Other Gastrointestinal History: occasional heartburn Genitourinary History: Reports: BPH, Renal Calculus, Other (See Below) Other Genitourinary History: takes Allopurinol for kidney stones Musculoskeletal History: Reports: Arthritis, Back Pain, Chronic Neurological History: Reports: None Psychiatric History: Reports: None Endocrine/Metabolic History: Reports: Hypothyroidism, Obesity/BMI 30+ Hematologic History: Reports: None Immunologic History: Reports: None Oncologic (Cancer) History: Reports: None Dermatologic History: Reports: Other (See Below) Other Dermatologic History: dry skin - Past Surgical History Head Surgeries/Procedures: Reports: None HEENT Surgical History: Reports: Oral Surgery, Tonsillectomy Other Cardiovascular Surgeries/Procedures: cardiac angiogram Respiratory Surgical History: Reports: None GI Surgical History: Reports: Colonoscopy Male Surgical History: Reports: Lithotripsy (ESWL), Renal Calculus, Ureteral Stent Other Male Surgeries/Procedures: 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 Endocrine Surgical History: Reports: None Neurological Surgical History: Reports: None Musculoskeletal Surgical History: Reports: Knee Replacement, Other (See Below) Other Musculoskeletal Surgeries/Procedures:: right biceps tendon repair, bilateral TKA Oncologic Surgical History: Reports: None Dermatological Surgical History: Reports: None - History Comment History Comment: etoh "rare" - SUBSTANCE USE Tobacco Use Status *Q: Former Tobacco User Tobacco Use Within Last Twelve Months: No - HOME MEDS Home Medications: Home Meds Allopurinol [Zyloprim] 300 mg PO DAILY 08/16/16 [History] Furosemide 40 mg PO QAM 08/16/16 [History] Levothyroxine Sodium [Synthroid] 100 mcg PO DAILY 08/16/16 [History] [place]-3/DHA/Epa/Fish Oil [[place]-3 Fish Oil 1,000 MG Sfgl] 1,000 mg PO DAILY 08/16/16 [History] Losartan Potassium 50 mg PO QAM 04/13/17 [History] Cholecalciferol (Vitamin D3) [Vitamin D3] 1,000 unit PO DAILY 09/27/17 [History] Tamsulosin HCl 0.4 mg PO BEDTIME 09/27/17 [History] Apixaban [Eliquis] 5 mg PO BID 08/17/21 [History] Aspirin [Adult Aspirin Regimen] 81 mg PO DAILY 08/17/21 [History] Dutasteride 0.5 mg PO DAILY 08/17/21 [History] Metoprolol Succinate 25 mg PO DAILY 08/17/21 [History] Potassium Chloride 20 meq PO DAILY 08/17/21 [History] atorvaSTATin Calcium [Atorvastatin Calcium] 40 mg PO DAILY 08/17/21 [History] - CURRENT (IN HOUSE) MEDS Current Meds: Current Medications Lactated Ringer's (Ringers, Lactated) 1,000 mls @ 125 mls/hr IV ASDIRECTED SRINI Last Admin: 08/23/21 08:55 Dose: 125 mls/hr Documented by: Sodium Chloride (Sodium Chloride 0.9% 10 Ml Syringe) 10 ml FLUSH ASDIRECTED PRN PRN Reason: Keep Vein Open Sodium Chloride (Sodium Chloride 0.9% 2.5 Ml Syringe) 2.5 ml FLUSH ASDIRECTED PRN PRN Reason: Keep Vein Open Sodium Chloride (Sodium Chloride 0.9% 10 Ml Syringe) 10 ml FLUSH ASDIRECTED PRN PRN Reason: Keep Vein Open Sodium Chloride (Sodium Chloride 0.9% 2.5 Ml Syringe) 2.5 ml FLUSH ASDIRECTED PRN PRN Reason: Keep Vein Open Sodium Chloride (Sodium Chloride 0.9% 20 Ml Sdv) 10 ml IV ASDIRECTED PRN PRN Reason: IV Use
[2021-08-23] MEDS ORDERED: ePHEDrine 50 MG/ML SDV ONE (11:36)
[2021-08-23] MEDS ORDERED: cefOXitin 1 GM Vial ONE (11:56)
[2021-08-23] MEDS ORDERED: Phenylephrine 1% 10 MG/ML SDV ONE (12:06)
[2021-08-23] MEDS ORDERED: Propofol 200 MG/20 ML SDV ONE (12:19)
[2021-08-23] MEDS ORDERED: fentaNYL 100 MCG/2 ML SDV ONE (12:19)
--- NOTE | 2021-08-23 12:41 | PCM.POSTAN ---
POST ANESTHESIA ASSESSMENT - MENTAL STATUS Mental Status: Alert, Oriented - VITAL SIGNS Vital Signs: Last Vital Signs Temp 97.2 F 08/23/21 08:15 Pulse 91 08/23/21 08:15 Resp 15 08/23/21 08:15 BP 105/60 08/23/21 08:15 Pulse Ox 95 08/23/21 08:15 - RESPIRATORY Respiratory Status: Respiratory Rate WNL, Airway Patent, O2 Saturation Stable - CARDIOVASCULAR CV Status: Pulse Rate WNL, Blood Pressure Stable - GASTROINTESTINAL GI Status: No Symptoms - POST OP HYDRATION Hydration Status: Adequate & Stable
--- NOTE | 2021-08-23 12:41 | PCM48HPAN ---
Post Anesthesia Note - EVALUATION WITHIN 48HRS OF ANESTHETIC Vital Signs in Normal Range: Yes Patient Participated in Evaluation: Yes Respiratory Function Stable: Yes Airway Patent: Yes Cardiovascular Function Stable: Yes Hydration Status Stable: Yes Pain Control Satisfactory: Yes Nausea and Vomiting Control Satisfactory: Yes Mental Status Recovered: Yes Vital Signs: Last Vital Signs Temp 97.2 F 08/23/21 08:15 Pulse 91 08/23/21 08:15 Resp 15 08/23/21 08:15 BP 105/60 08/23/21 08:15 Pulse Ox 95 08/23/21 08:15
[2021-08-23 12:42] VITALS: PULSE 87
--- NOTE | 2021-08-23 12:42 | PCM.OPNOTE ---
- General Post-Op/Procedure Note Date of Surgery/Procedure: 08/23/21 Operative Procedure(s): Screening colonoscopy Findings: transverse colon polyp x 6, sigmoid colon polyp x 2, descending colon polyp x 2, diverticulosis Pre Op Diagnosis: Screening colonoscopy Post-Op Diagnosis: transverse colon polyp x 6, sigmoid colon polyp x 2, descending colon polyp x 2, diverticulosis Anesthesia Technique: [facility] [place] Primary Surgeon: Eli Li Condition: Good
[2021-08-23 13:43] VITALS: BP 95/53
--- NOTE | 2021-08-23 14:19 | OR ---
SURGEON: ELI LI MD DATE OF PROCEDURE: 08/23/2021 PREOPERATIVE DIAGNOSIS: Screening colonoscopy. POSTOPERATIVE DIAGNOSES: 1. Transverse colon polyp x6. 2. Descending colon polyp x2. 3. Sigmoid colon polyp x2. 4. Diverticulosis. PROCEDURE PERFORMED: Screening colonoscopy with polypectomy. PRIMARY SURGEON: Eli Li MD ANESTHESIA: General. FLUIDS: See Anesthesia record. INSTRUMENT USED: Olympus colonoscope. EXTENT OF THE EXAM: To the cecum. PREPARATION: Good. LIMITATIONS: None. INDICATIONS FOR EXAMINATION: The patient is a 75-year-old male who presents for a 10-year screening colonoscopy. The patient and I discussed the procedure, expected perioperative course, and the risks. He verbalized understanding and wishes to proceed. PROCEDURE IN DETAIL: The patient was brought in to the endoscopy suite and placed in a left lateral decubitus position. A time-out was completed verifying the patient's name, age, date of , allergies, and procedure to be performed. General anesthesia was induced. Continuous oxygen was provided via face mask throughout the procedure. After adequate sedation was achieved, a digital rectal exam was performed. This exam was within normal limits. A well-lubricated colonoscope was inserted in the rectum and advanced under direct visualization to the level of the cecum. The cecum was identified by both visual and anatomic landmarks. A photograph was taken of the cecal cap, however, I was unable to retroflex the scope within the cecum due to looping of the scope more proximally. The scope was then fully withdrawn while examining the color, texture, anatomy, and integrity of the mucosa from the cecum to the anal canal. The patient was found to have six transverse colon polyps. The biggest of these was transverse colon polyp #1. This was removed in a combined fashion. I removed part of the sessile aspect of the polyp using a cold biopsy forceps. There was a more pedunculated piece. This was removed using a hot snare. Once the area appeared to be completely resected, I inked its margins with marking ink for identification in the future. The patient had five more polyps that were removed in a combined fashion of using a cold biopsy forceps as well as hot snare. The patient had two more pedunculated polyps in the descending colon. These were removed using a hot snare. He had two more sessile polyps in the sigmoid colon and they were removed with a hot snare as well. He did have diverticulosis of the sigmoid colon. The scope was brought into the rectum and retroflexed to allow visualization of the anal canal opening. This appeared normal and a photograph was taken. The scope was straightened out and fully withdrawn. The cecum to anus time was 57 minutes. The patient tolerated the procedure well and was transferred to the PACU in stable condition. ENDOSCOPIC DIAGNOSES: 1. Transverse colon polyp x6. 2. Descending colon polyp x2. 3. Sigmoid colon polyp x2. 4. Diverticulosis. RECOMMENDATION: We will visit with the patient in clinic in two weeks regarding the pathology results from this colonoscopy. LEVI CORREA /[id number]
== END 2021-08-23 13:20 | disposition home or self-care (01) ==
LOC: MW.SDS 07:57
PROVIDERS: ATTEND Surgery
DX: Z12.11 Encounter for screening for malignant neoplasm of colon (principal); D12.3 Benign neoplasm of transverse colon; D12.4 Benign neoplasm of descending colon; D12.5 Benign neoplasm of sigmoid colon; K57.30 Diverticulosis of large intestine without perforation or abscess without bleeding; F41.9 Anxiety disorder, unspecified; M10.9 Gout, unspecified; I10 Essential (primary) hypertension; E78.00 Pure hypercholesterolemia, unspecified; E66.9 Obesity, unspecified; I25.10 Atherosclerotic heart disease of native coronary artery without angina pectoris; E03.9 Hypothyroidism, unspecified; Z98.890 Other specified postprocedural states; Z79.899 Other long term (current) drug therapy; Z79.01 Long term (current) use of anticoagulants; Z79.890 Hormone replacement therapy; Z87.891 Personal history of nicotine dependence; Z68.36 Body mass index [BMI] 36.0-36.9, adult
CPT/HCPCS: 45381; 45385; J0694; J2370; J2704; J3010; J7120; 00812; 88305; 99100

== ENCOUNTER → 2022-10-10 | Day surgery (SDC) | payer MEDICARE, OTHER ==
[~2022-10-10] MED LIST changes: +Lidocaine 2% 5 ML SDV ONE; +Phenylephrine 1% 10 MG/ML SDV ONE; +Propofol 200 MG/20 ML SDV ONE; +ePHEDrine 50 MG/ML SDV ONE; +fentaNYL 100 MCG/2 ML SDV ONE
[2022-10-10 10:05] VITALS: BP 102/56; PULSE 82
== END | disposition home or self-care (01) ==
LOC: MW.SDS 06:43
PROVIDERS: ATTEND Surgery
DX: Z12.11 Encounter for screening for malignant neoplasm of colon (principal); D12.3 Benign neoplasm of transverse colon; F41.9 Anxiety disorder, unspecified; J40 Bronchitis, not specified as acute or chronic; J30.9 Allergic rhinitis, unspecified; I48.92 Unspecified atrial flutter; K21.9 Gastro-esophageal reflux disease without esophagitis; M10.9 Gout, unspecified; I10 Essential (primary) hypertension; E78.00 Pure hypercholesterolemia, unspecified; E87.6 Hypokalemia; E03.9 Hypothyroidism, unspecified; I25.10 Atherosclerotic heart disease of native coronary artery without angina pectoris; E66.9 Obesity, unspecified; Z68.39 Body mass index [BMI] 39.0-39.9, adult; Z86.010 Personal history of colon polyps; Z79.899 Other long term (current) drug therapy; Z79.890 Hormone replacement therapy; Z87.891 Personal history of nicotine dependence; Z98.890 Other specified postprocedural states; Z79.82 Long term (current) use of aspirin
CPT/HCPCS: 00811; 45380; 88305; 99100; J2370; J2704; J3010; J3490; J7120